=== PATIENT | male | born 1950 | race Caucasian/White ===

== ENCOUNTER 2020-03-05 08:34 | Outpatient (REF) | payer MEDICARE, SELFPAY ==
[2020-03-05 10:49] LABS: Estimated Average Glucose 100 mg/dL; Hemoglobin A1c % 5.1 %
[2020-03-05 11:02] LABS: Alanine Aminotransferase 15 U/L (0-40); Albumin Level 3.8 g/dL (3.5-5.0); Alkaline Phosphatase 91 U/L (39-117); Aspartate Amino Transferase 21 U/L (5-37); Bilirubin Total 1.9 mg/dL (0.0-1.0); Cholesterol 134 mg/dL; Glucose Fasting 143 mg/dL (60-99); HDL Cholesterol 69 mg/dL; LDL Cholesterol Calculated 38 mg/dl; Total Protein 6.5 g/dL (6.5-8.0); Triglycerides 135 mg/dL
== END 2020-03-05 08:35 | disposition home or self-care (01) ==
LOC: HO.LAB 08:34
PROVIDERS: Visit Provider Internal Medicine
DX: E11.65 Type 2 diabetes mellitus with hyperglycemia (principal); E78.2 Mixed hyperlipidemia; I10 Essential (primary) hypertension; E78.00 Pure hypercholesterolemia, unspecified
CPT/HCPCS: 80061; 80076; 82947; 83036

== ENCOUNTER 2020-06-11 10:33 | Outpatient (REF) | payer MEDICARE, SELFPAY ==
[2020-06-11 11:50] LABS: Estimated Average Glucose 97 mg/dL
[2020-06-11 12:10] LABS: Glucose Fasting 113 mg/dL (60-99)
== END 2020-06-11 10:34 | disposition home or self-care (01) ==
LOC: HO.LNP 10:33
PROVIDERS: PCP Internal Medicine; Visit Provider Internal Medicine
DX: E11.65 Type 2 diabetes mellitus with hyperglycemia (principal)
CPT/HCPCS: 82947; 83036

== ENCOUNTER 2020-06-21 18:49 | Emergency (ER) | payer MEDICARE, SELFPAY ==
[2020-06-21] VITALS (8 sets, daily range): BP systolic 145–184; BP diastolic 67–101; PULSE 73–98; RESP 12–18; TEMP 36.7; O2SAT 92–95; BMI 38.0
--- NOTE | ~2020-06-21 | XR_ITS ---
EXAMINATION: XR SHOULDER, RIGHT CLINICAL INFORMATION: Post reduction COMPARISON: Right shoulder performed earlier at 7:24 PM TECHNIQUE: AP external rotation, Grashey, scapular Y, and axillary views of the right shoulder. FINDINGS: Status post reduction there is normal glenohumeral alignment. No fracture or lytic process seen. The soft tissues are normal. There is mild periarticular spurring right AC joint. XR/XR shoulder RT min 2V IMPRESSION: Status post reduction there is normal glenohumeral alignment. There is no acute fracture or lytic process.
--- NOTE | ~2020-06-21 | XR_ITS ---
EXAMINATION: XR SHOULDER, RIGHT CLINICAL INFORMATION: Fall with shoulder pain COMPARISON: None TECHNIQUE: Two views of the right shoulder. FINDINGS: There is anteroinferior dislocation of the right shoulder. No fracture is seen on the 2 included views. XR/XR shoulder RT min 2V IMPRESSION: Anteroinferior dislocation of the right shoulder. Recommend full series of shoulder radiographs after reduction.
--- NOTE | 2020-06-21 19:09 | ED_ITS ---
HPI - Extremity Problem General Chief complaint: Extremity Injury, Upper Stated complaint: FALL ETOH Time Seen by Provider: 06/21/20 19:02 Source: patient and EMS Mode of arrival: EMS Limitations: no limitations History of Present Illness HPI Narrative: Patient comes to the emergency room complaining of right shoulder pain. Today patient was celebrating his 70th birthday, had a few drinks, went to the restroom, states he lost his footing, fell on his right shoulder. Patient states that he has been awake the whole time, no loss of consciousness, no blood thinners, did not hit his head and has no neck pain. Prior to the incident, patient denies dizziness, no chest pain or shortness of breath. EMS gave him 100 mcg of fentanyl before arriving to the hospital. Patient states that he was not able to get up because his arm was hurting and continues to support himself, denies hip pain. At this time, other than the right shoulder pain, patient has no other symptoms. MD Complaint: extremity pain Related Data Allergies Allergy/AdvReac Type Severity Reaction Status Date / Time No Known Allergies Allergy Verified 06/21/20 19:08 Review of Systems Review of Systems: Constitutional : No Weight loss, No Fever, No Chills, No Night Sweats, No Fatigue, No Malaise ENT/Mouth : No Hearing loss, No Ear Pain, No Nasal Congestion, No Sinus Pain, No Hoarseness, No sore throat, No Rhinorrhea, No Swallowing Difficulty Eyes: No Eye Pain, No Swelling, No Redness, No Foreign Body, No Discharge, No Vision Changes Cardiovascular : No Chest Pain, No SOB, No Dyspnea on Exertion, No Orthopnea, No Edema, No Palpitations Respiratory : No Cough, No Sputum, No Wheezing, No Smoke Exposure, No Dyspnea Gastrointestinal : No Nausea, No Vomiting, No Diarrhea, No Constipation, No abdominal Pain, No Hematochezia, No Melena Genitourinary : no irregular bleeding, No Dysuria, No Urinary Frequency, No Hematuria, No Urinary Incontinence, No Urgency, No Flank Pain, No Urinary Flow Changes, No Hesitancy Musculoskeletal : Right shoulder pain, No Myalgias, No Joint Swelling Skin : No Skin Lesions, No rash Neuro : No Weakness, No Numbness, No Paresthesias, No Loss of Consciousness, No Dizziness, No Headache Psych : No Anxiety/Panic, No Depression, No SI/HI/AH/VH, No Social Issues, Heme/Lymph: No Bruising, No Bleeding,No Lymphadenopathy Endocrine : No Polyuria, No Polydipsia, No Temperature Intolerance [facility] Past Medical History Medical History (Updated 06/21/20 @ 23:22 by Angelica Dhillon MD) Diabetes Hypertension Social History Social History Alcohol intake: current Alcohol intake frequency: holidays/special occasions only Use of substances other than those prescribed or required for medical reasons: No Advance Directives: No Advance Directives Information Provided: Yes Physical Exam Vital Signs: Vital Signs: Last Vital Signs Temp 98.0 F 06/21/20 21:48 Pulse 95 06/21/20 22:59 Resp 18 06/21/20 22:59 BP 171/81 H 06/21/20 22:59 Pulse Ox 95 06/21/20 22:25 Body Mass Index 38.0 Appearance: Alert. Oriented X3. No acute distress. Alert and oriented x3, clinically within normal limits, no suspicion of ETOH intoxication Eyes: Pupils equal, round and reactive to light. ENT: Pharynx normal. Neck: Normal inspection. Neck supple. No lymph nodes noted. No crepitus, no C- spine tenderness. C-collar removed CVS: Normal heart rate and rhythm. Pulses normal. Normal S1 and S2 Respiratory: No respiratory distress. Breath sounds normal. No Wheezing. No rales Abdomen: Soft and nontender. No rigidity. No distention. good BS x4 Skin: Skin warm and dry. Normal skin color. Normal skin turgor. Extremities: No lower extremity edema. No pain in lower extremities, normal range of motion. Patient is unable to abduct the right arm due to pain in the right shoulder. Pain to palpation over frontal and lateral aspect. Deformity present, no ecchymosis Neuro: Oriented X 3. No motor deficit. No sensory deficit. Moving all extermities. No slurred speech. Course Course Course Narrative: I discussed with the patient that his shoulder is dislocated. We do not have any current labs for the patient. Basic labs and EKG pending. Patient was informed of the risks versus benefits of conscious sedation , he accepted conscious sedation to have his shoulder reduced. Patient tolerated well the conscious sedation and the reduction which was uneventful. 20 mg of etomidate use. Patient recovered quickly and he states that he is feeling very well and has no pain. Patient instructed to follow-up with Dr. San. Patient provided with a sling for his shoulder Procedures Procedural Sedation Indication: fracture/dislocation reduction ASA Class: II Preparation: property assessment monitor applied, pulse oximeter, capnometry used, supplemental O2 applied, suction/airway equipment at bedside and IV secured IV Etomidate dose (mg): 20 Patient Tolerated Procedure: well and no complications MDM - Extremity (Nontraumatic) Lab Data Result diagrams: 06/21/20 20:27 06/21/20 20:27 Labs: Lab Results 06/21/20 06/21/20 Range/Units 20:27 20:27 WBC 6.6 (4.8-10.8) X10*3/uL RBC 3.18 L (4.60-5.80) X10*6/uL Hgb 13.8 L (14.0-18.0) g/dl Hct 38.7 L (42-52) % MCV 121.7 H (80-98) fL MCH 43.4 H (27.0-33.0) pg MCHC 35.7 (31.0-36.0) g/dl RDW 13.7 (11.0-16.0) % Plt Count 192 (160-400) X10*3/uL MPV 10.5 (9.4-12.4) fL Immature Gran % (Auto) 0.9 H (0.0-0.4) % Neut % (Auto) 76.4 H (45-73) % Lymph % (Auto) 15.1 L (20-40) % [place] % (Auto) 4.1 (2-11) % Eos % (Auto) 3.2 (0-4) % Baso % (Auto) 0.3 (0-2) % Lymph # (Auto) 1.0 L (1.2-4.9) X10*3/uL [place] # (Auto) 0.3 (0.1-1.2) X10*3/uL Eos # (Auto) 0.2 (0.0-0.4) X10*3/uL Baso # (Auto) 0.0 (0.0-0.2) X10*3/uL Abs Immat Gran (auto) 0.06 H (0.00-0.03) X10*3/uL Absolute Neuts (auto) 5.1 (2.0-8.3) X10*3/uL Absolute Nucleated RBC 0.000 (0.0-0.012) X10*3/uL Nucleated RBC % (auto) 0.0 (0.0-0.2) /100WBC Sodium 137 (135-145) mmol/L Potassium 3.2 L (3.3-5.1) mmol/L Chloride 99 (96-108) mmol/L Carbon Dioxide 23 (22-29) mmol/L Anion Gap 18 (12-20) BUN 10 (9-16) mg/dL Creatinine 1.33 (0.5-1.4) mg/dL Estim Creat Clear Calc 67.1 Estimated GFR 53 Random Glucose 134 H (60-115) mg/dL Calcium 8.2 L (8.4-10.2) mg/dL Imaging Data Shoulder x-ray: My impression: Dislocated right shoulder Radiologist's impression: There is anteroinferior dislocation of the right shoulder. No fracture is seen on the 2 included views. XR/XR shoulder RT min 2V IMPRESSION: Anteroinferior dislocation of the right shoulder. Recommend full series of shoulder radiographs after reduction. Post reduction right shoulder x-ray: My impression: Reduced right shoulder, no fracture Radiologist's impression: FINDINGS: Status post reduction there is normal glenohumeral alignment. No fracture or lytic process seen. The soft tissues are normal. There is mild periarticular spurring right AC joint. XR/XR shoulder RT min 2V IMPRESSION: Status post reduction there is normal glenohumeral alignment. There is no acute fracture or lytic process. Discharge Plan Discharge Clinical Impression: Dislocation of shoulder region Qualifiers: Encounter type: initial encounter Laterality: right Qualified Code(s): S43.004A - Unspecified dislocation of right shoulder joint, initial encounter Patient Disposition: Home, Self-Care Instructions: Shoulder Dislocation (ED), Shoulder Immobilizer (ED) Additional Instructions: Please call the orthopedics office to schedule an appointment. Please follow-up with your primary care physician tomorrow. If you have any worsening or new symptoms, please return to the emergency room or call 911 Referrals: Alban San MD [Physician] - 1 day
[2020-06-21] MEDS: Morphine Sulfate 4 MG/ML CARTRIDGE IVPUSH (19:18)
--- NOTE | 2020-06-21 19:42 | ECG_ITS ---
Test Reason : FALL Blood Pressure : / mmHG Vent. Rate : 077 BPM Atrial Rate : 077 BPM P-R Int : 272 ms QRS Dur : 094 ms QT Int : 438 ms P-R-T Axes : -12 078 050 degrees QTc Int : 495 ms Sinus rhythm with 1st degree A-V block Prolonged QT Abnormal ECG When compared with ECG of 30-JAN-2002 07:17, CO interval has increased QRS voltage has decreased QT has lengthened Referred By: Angelica Dhillon Electronically Signed By:NEWTON ALLEN MD
[2020-06-21 20:33] LABS: MANUAL DIFF FLAG NO
[2020-06-21] MEDS: HYDROmorphone HCl 1 MG/ML SYRINGE IVPUSH (20:33)
[2020-06-21 20:49] LABS: Basophils Percent Auto 0.3 % (0-2); Eosinophils Absolute Auto 0.2 X10*3/uL (0.0-0.4); Eosinophils Percent Auto 3.2 % (0-4); Hematocrit 38.7 % (42-52); Hemoglobin 13.8 g/dl (14.0-18.0); Imm Gran Abs Auto 0.06 X10*3/uL (0.00-0.03); Imm Gran Pct Auto 0.9 % (0.0-0.4); Lymphocytes Percent Auto 15.1 % (20-40); Mean Corpuscular HGB Conc 35.7 g/dl (31.0-36.0); Mean Corpuscular Hemoglobin 43.4 pg (27.0-33.0); Mean Platelet Volume 10.5 fL (9.4-12.4); Monocytes Absolute Auto 0.3 X10*3/uL (0.1-1.2); Monocytes Percent Auto 4.1 % (2-11); Neutrophils Absolute Auto 5.1 X10*3/uL (2.0-8.3); Neutrophils Percent Auto 76.4 % (45-73); Platelet Count 192 X10*3/uL (160-400); Red Blood Count 3.18 X10*6/uL (4.60-5.80); Red Cell Distribution Width 13.7 % (11.0-16.0); White Blood Count 6.6 X10*3/uL (4.8-10.8)
[2020-06-21 20:50] LABS: Mean Corpuscular Volume 121.7 fL (80-98)
[2020-06-21 20:58] LABS: Anion Gap 18 (12-20); Blood Urea Nitrogen 10 mg/dL (9-16); Calcium 8.2 mg/dL (8.4-10.2); Carbon Dioxide 23 mmol/L (22-29); Chloride 99 mmol/L (96-108); Creatinine Clr Calc Pharmacy 67.1; Estimated Glomerular Filt Rate 53; Glucose Random 134 mg/dL (60-115); Potassium 3.2 mmol/L (3.3-5.1); Sodium 137 mmol/L (135-145)
--- NOTE | 2020-06-21 22:12 | PC.NURSE ---
BROTHER BRIDGETTE SIGNED D/C PAPERWORK .PT BROUGHT FROM BED 10 TO BED 13 FOR CONCIOUS SEDATION.
[2020-06-21] MEDS: Etomidate 20 MG/10 ML VIAL IVPUSH (22:25)
--- NOTE | 2020-06-21 23:20 | PC.NURSE ---
pt tolerated procedure well.
--- NOTE | 2020-06-21 23:26 | PC.NURSE ---
pt passed po challenge.
--- NOTE | 2020-06-22 00:02 | PC.NURSE ---
See paper notes for intraprocedure vss.
== END 2020-06-21 23:50 | disposition home or self-care (01) ==
PROVIDERS: Emergency Provider Emergency Medicine; PCP Internal Medicine
DX: S43.004A Unspecified dislocation of right shoulder joint, initial encounter (principal); W01.198A Fall on same level from slipping, tripping and stumbling with subsequent striking against other object, initial encounter; E11.9 Type 2 diabetes mellitus without complications; I10 Essential (primary) hypertension; Y93.89 Activity, other specified; Y92.019 Unspecified place in single-family (private) house as the place of occurrence of the external cause; Y99.9 Unspecified external cause status
CPT/HCPCS: 23655; 36415; 73030; 80048; 85025; 85060; 93005; 96374; 96375; 99152; 99153; 99284; 99285; J1170; J2270

== ENCOUNTER 2020-06-28 15:17 | Outpatient (REF) | payer MEDICARE, SELFPAY ==
[2020-06-28 16:44] LABS: Folate 1.7 ng/mL (> or = 4.0); Vitamin B12 169 pg/mL (200-900)
== END 2020-06-28 15:18 | disposition home or self-care (01) ==
LOC: HO.LNP 15:17
PROVIDERS: Visit Provider Internal Medicine
DX: D75.89 Other specified diseases of blood and blood-forming organs (principal)
CPT/HCPCS: 82607; 82746

== ENCOUNTER 2020-08-27 11:03 | Outpatient (REF) | payer MEDICARE, SELFPAY ==
[2020-08-27 11:08] LABS: MANUAL DIFF FLAG NO
[2020-08-27 11:54] LABS: Basophils Absolute Auto 0.1 X10*3/uL (0.0-0.2); Basophils Percent Auto 1.1 % (0-2); Eosinophils Absolute Auto 0.4 X10*3/uL (0.0-0.4); Eosinophils Percent Auto 6.3 % (0-4); Hematocrit 46.5 % (42-52); Hemoglobin 15.8 g/dl (14.0-18.0); Imm Gran Abs Auto 0.02 X10*3/uL (0.00-0.03); Imm Gran Pct Auto 0.3 % (0.0-0.4); Lymphocytes Absolute Auto 1.9 X10*3/uL (1.2-4.9); Lymphocytes Percent Auto 30.7 % (20-40); Mean Corpuscular Hemoglobin 39.9 pg (27.0-33.0); Mean Platelet Volume 11.1 fL (9.4-12.4); Monocytes Absolute Auto 0.4 X10*3/uL (0.1-1.2); Monocytes Percent Auto 6.8 % (2-11); Neutrophils Absolute Auto 3.4 X10*3/uL (2.0-8.3); Neutrophils Percent Auto 54.8 % (45-73); Platelet Count 157 X10*3/uL (160-400); Red Blood Count 3.96 X10*6/uL (4.60-5.80); Red Cell Distribution Width 11.7 % (11.0-16.0); White Blood Count 6.2 X10*3/uL (4.8-10.8)
[2020-08-27 11:56] LABS: Mean Corpuscular Volume 117.4 fL (80-98)
[2020-08-27 12:23] LABS: Glucose Urine UA NEG (NEG); Leukocyte Esterase Urine NEG (NEG); Nitrite Urine NEG (NEG); Specific Gravity - Urine 1.025 (1.005-1.025); Urine Blood 2+ (NEG); Urine Ketones NEG (NEG); Urine Protein TRACE MG/DL (NEG-TRACE)
[2020-08-27 12:25] LABS: Appearance Urine CLEAR; Color Urine YELLOW
[2020-08-27 13:07] LABS: Squamous Epithelial Cell Urine 1+ /LPF; WBC Urine 0-2 /HPF (0-4)
[2020-08-27 13:09] LABS: Estimated Average Glucose 91 mg/dL; Hemoglobin A1C 121.9804 umol/L; Hemoglobin A1c % 4.8 %
[2020-08-27 13:26] LABS: Creatinine Urine 182.47 mg/dL; Microalbum/Creatinine Ratio Ur 32.3 ug/mg cr
[2020-08-27 13:37] LABS: Alanine Aminotransferase 19 U/L (0-40); Albumin Level 4.1 g/dL (3.5-5.0); Alkaline Phosphatase 114 U/L (39-117); Anion Gap 18 (12-20); Aspartate Amino Transferase 32 U/L (5-37); Blood Urea Nitrogen 12 mg/dL (9-16); Calcium 9.1 mg/dL (8.4-10.2); Carbon Dioxide 23 mmol/L (22-29); Chloride 105 mmol/L (96-108); Cholesterol 199 mg/dL; Estimated Glomerular Filt Rate 53; Glucose Fasting 100 mg/dL (60-99); HDL Cholesterol 84 mg/dL; LDL Cholesterol Calculated 73 mg/dl; Sodium 142 mmol/L (135-145); Total Protein 7.1 g/dL (6.5-8.0); Triglycerides 213 mg/dL
[2020-08-27 13:43] LABS: PSA,Total (Free>4and<10) 0.94 ng/mL (0.00-4.00)
== END 2020-08-27 11:04 | disposition home or self-care (01) ==
LOC: HO.LNP 11:03
PROVIDERS: Visit Provider Internal Medicine
DX: Z00.00 Encounter for general adult medical examination without abnormal findings (principal); I10 Essential (primary) hypertension; E11.65 Type 2 diabetes mellitus with hyperglycemia; E78.00 Pure hypercholesterolemia, unspecified; D75.89 Other specified diseases of blood and blood-forming organs; Z12.5 Encounter for screening for malignant neoplasm of prostate
CPT/HCPCS: 80053; 80061; 81001; 81003; 82043; 83036; 84153; 85025

== ENCOUNTER 2020-12-07 10:21 | Outpatient (REF) | payer MEDICARE, SELFPAY ==
[2020-12-07 10:23] LABS: MANUAL DIFF FLAG NO
[2020-12-07 10:49] LABS: Basophils Absolute Auto 0.1 X10*3/uL (0.0-0.2); Basophils Percent Auto 0.7 % (0-2); Eosinophils Absolute Auto 0.5 X10*3/uL (0.0-0.4); Eosinophils Percent Auto 6.8 % (0-4); Hemoglobin 15.3 g/dl (14.0-18.0); Imm Gran Abs Auto 0.03 X10*3/uL (0.00-0.03); Imm Gran Pct Auto 0.4 % (0.0-0.4); Lymphocytes Absolute Auto 1.7 X10*3/uL (1.2-4.9); Lymphocytes Percent Auto 21.7 % (20-40); Mean Corpuscular HGB Conc 33.3 g/dl (31.0-36.0); Mean Corpuscular Hemoglobin 35.3 pg (27.0-33.0); Mean Platelet Volume 11.8 fL (9.4-12.4); Monocytes Absolute Auto 0.6 X10*3/uL (0.1-1.2); Monocytes Percent Auto 7.5 % (2-11); Neutrophils Absolute Auto 4.8 X10*3/uL (2.0-8.3); Neutrophils Percent Auto 62.9 % (45-73); Platelet Count 149 X10*3/uL (160-400); Red Blood Count 4.34 X10*6/uL (4.60-5.80); Red Cell Distribution Width 12.6 % (11.0-16.0); White Blood Count 7.7 X10*3/uL (4.8-10.8)
[2020-12-07 11:58] LABS: Folate 12.8 ng/mL (> or = 4.0); Vitamin B12 570 pg/mL (200-900)
== END 2020-12-07 10:22 | disposition home or self-care (01) ==
LOC: HO.LNP 10:21
PROVIDERS: Visit Provider Internal Medicine
DX: E53.8 Deficiency of other specified B group vitamins (principal); D75.89 Other specified diseases of blood and blood-forming organs
CPT/HCPCS: 82607; 82746; 85025

== ENCOUNTER 2021-01-11 08:15 | Emergency (ER) | payer MEDICARE, SELFPAY ==
--- NOTE | ~2021-01-11 | XR_ITS ---
EXAMINATION: XR SHOULDER, LEFT CLINICAL INFORMATION: Anterior dislocation left shoulder, post reduction COMPARISON: Radiographs left shoulder 01/11/2021. TECHNIQUE: The left shoulder is imaged portably in 4 views. FINDINGS: There is realignment of glenohumeral joint. No dislocation. Oblique lateral view suggests Hill-Sachs lesion posterior medial humeral head, secondary to the dislocation. There is a fine linear density at this site which may represent a cortical avulsion from the prior injury. The acromioclavicular alignment is normal. XR/XR shoulder LT min 2V IMPRESSION: 1. Realignment glenohumeral joint. No dislocation. 2. Suspect Hill-Sachs impaction posterior humeral head with possible short linear cortical avulsion from the prior injury.
--- NOTE | ~2021-01-11 | XR_ITS ---
EXAMINATION: XR SHOULDER, LEFT CLINICAL INFORMATION: Carney like shoulder popped out COMPARISON: June 21, 2020 TECHNIQUE: Two views of the left shoulder. FINDINGS: There is anterior dislocation of the humeral head. There is bony density seen adjacent to the greater tuberosity and overlying the humeral head which may be related to calcific tendinitis however small fracture cannot be excluded. There is prominent inferior spurring about the acromioclavicular joint. XR/XR shoulder LT min 2V IMPRESSION: Anterior dislocation of the left shoulder. Probable calcific tendinitis.
[2021-01-11 08:16] VITALS: BP 184/118; PULSE 98; RESP 18; TEMP 35.5; O2SAT 97; BMI 36.8
--- NOTE | 2021-01-11 08:45 | ED_ITS ---
HPI - Extremity Problem General Chief complaint: Extremity Injury, Upper Stated complaint: lt shoulder pain Time Seen by Provider: 01/11/21 08:45 Source: patient Mode of arrival: ambulatory Limitations: no limitations History of Present Illness HPI Narrative: last night sitting in his chair tripped on a blanket and injured his left shoulder Complaint: extremity pain and joint paint Onset (ago): hour(s) Pain Consistency: constant Location: left Quality: aching Radiation: none Relieving factors: nothing Exacerbating factors: other (movement) Associated symptoms: denies other symptoms Related Data Previous Rx's Medication Instructions Recorded naproxen 500 mg tablet (Naprosyn) 500 mg PO BID #20 tab 01/11/21 Allergies Allergy/AdvReac Type Severity Reaction Status Date / Time No Known Allergies Allergy Verified 06/21/20 19:08 Review of Systems Constitutional: Constitutional: Reports no additional constitutional complaints Eyes: Eyes: Reports no additional eye complaints ENT: Denies dizziness Cardiovascular: Cardiovascular: Reports no additional cardiovascular complaints Respiratory: Respiratory: Reports as per HPI Gastrointestinal: Gastrointestinal: Reports no additional gastrointestinal complaints Musculoskeletal: Musculoskeletal: Reports no additional musculoskeletal complaints Integumentary/Breasts: Skin/Breast: Denies rash Neurologic: Reports system reviewed and no additional complaints, except as documented, Denies dizziness and Denies Sensory deficit (Neuro) Psychiatric: Psychiatric: Denies anxiety [facility] Past Medical History Medical History (Updated 01/11/21 @ 09:50 by Akhil Sheridan MD) Diabetes Hypertension Social History Social History Alcohol intake: current Alcohol intake frequency: holidays/special occasions only Advance Directives: No Advance Directives Information Provided: Yes Physical Exam Vital Signs: Vital Signs: Last Vital Signs Temp 96 F L 01/11/21 08:16 Pulse 98 01/11/21 08:16 Resp 18 01/11/21 08:16 BP 184/118 H 01/11/21 08:16 Pulse Ox 97 01/11/21 08:16 Body Mass Index 36.8 Const: Other: elderly obese male Nutritional Appearance: obese Orientation/consciousness: oriented to person and patient oriented x3 Limitations: no limitations HENMT: Head: Yes normal to inspection Ears: external ears normal General nose exam: Normal external nose present Mouth: Normal oral and palatal mucosa present and oropharynx normal Throat: Yes posterior oropharynx normal Eyes: General: appearance normal, both eyes and all related structures Neck: Other: supple Neck: Yes normal visual inspection Chest: Chest palpation & inspection: normal inspection of the chest Resp: Auscultation: clear to auscultation bilaterally Cardio: Jugular venous distension: no JVD Rate: regular rate Rhythm: regular rhythm Heart sounds: S1 normal heart sound present and S2 normal heart sound present GI: Inspection: Yes normal to inspection Palpation (GI): Soft to palpation, nontender and No hepatosplenomegaly present Auscultation: normal bowel sounds : General: Yes no CVA tenderness Back/Spine/Pelvis: Back: no CVA tenderness Skin: General skin exam: no rashes or lesions noted Neuro: General: oriented to person and patient oriented x3 Cranial nerves: Yes CN's II-XII intact bilaterally Motor exam (neuro): 5/5 motor strength present throughout Sensory Exam: No Sensory deficit (Neuro) Extrem: Other: left shoulder with humeral head anteriorly dislocated Psych: Appearance: grossly normal Course Reevaluation(s) Reevaluation #1: will xray again as there appears to have been a reduction of the shoulder Time: 09:02 Reevaluation #2: Hill sachs deformity, dislocation reduced Time: 09:51 MDM - Extremity (Nontraumatic) Imaging Data left shoulder: Radiologist's impression: dislocation shoullder post reduction: Radiologist's impression: IMPRESSION: ? 1. Realignment glenohumeral joint. No dislocation. ? 2. Suspect Hill-Sachs impaction posterior humeral head with possible short linear cortical avulsion from the prior injury. Procedures Procedure Narrative Procedure Narrative: With arm at 90 degrees and downward pressure and external rotation, shoulder appears to have reduced Discharge Plan Discharge Clinical Impression: Hill Sachs deformity Dislocation of shoulder region Qualifiers: Encounter type: initial encounter Laterality: left Qualified Code(s): S43.005A - Unspecified dislocation of left shoulder joint, initial encounter Patient Disposition: Home, Self-Care Instructions: Shoulder Dislocation (ED) Prescriptions: New naproxen [Naprosyn] 500 mg tablet 500 mg PO BID Qty: 20 RF: 0 Referrals: Chandra Chamberlain MD [Physician] - 1 week
== END 2021-01-11 10:14 | disposition home or self-care (01) ==
PROVIDERS: Emergency Provider Emergency Medicine; PCP Internal Medicine
DX: S43.005A Unspecified dislocation of left shoulder joint, initial encounter (principal); M79.602 Pain in left arm; W01.0XXA Fall on same level from slipping, tripping and stumbling without subsequent striking against object, initial encounter; Y93.9 Activity, unspecified; Y92.9 Unspecified place or not applicable; Y99.9 Unspecified external cause status; Z79.899 Other long term (current) drug therapy
CPT/HCPCS: 23575; 23650; 23675; 73030; 99284

== ENCOUNTER → 2021-02-22 08:20 | Outpatient (BNVA) | payer MEDICARE, SELFPAY | PROVIDERS: PCP Internal Medicine; Visit Provider Physician Assistant | DX: S44.30XA Injury of axillary nerve, unspecified arm, initial encounter (principal) | CPT/HCPCS: 99202 ==

== ENCOUNTER 2021-03-22 13:32 | Inpatient (IN) | payer MEDICARE, SELFPAY ==
[2021-03-22] VITALS (7 sets, daily range): BP systolic 121–140; BP diastolic 65–106; PULSE 83–140; RESP 17–28; TEMP 36.6; O2SAT 96–100; BMI 36.8
--- NOTE | ~2021-03-22 | CT_ITS ---
EXAMINATION: CT CHEST, ABDOMEN AND PELVIS WITHOUT IV CONTRAST CLINICAL INFORMATION: Anorexia, dyspnea, weakness, fatigue COMPARISON: No pertinent prior studies are available for comparison. TECHNIQUE: Multidetector volumetric imaging was performed from the thoracic inlet through the pubic symphysis following the uneventful administration of: Oral contrast: No Intravenous contrast: None. Sagittal and coronal reformatted images were obtained on the technologist workstation. This CT examination was performed using dose optimization techniques as appropriate, variously including the following: *Automated exposure control *Adjustment of mA and/or kV according to patient size (this includes techniques or standardized protocols for targeted exams where dose is matched to indication/reason for exam; i.e. extremities or head) *Use of iterative reconstruction technique Total exam dose-length product 862 mGy-cm FINDINGS: CHEST: LUNG: There are patchy areas of irregular consolidation, groundglass opacity, and reticulation predominantly involving the left greater than right lower lobes and lingula. No dense lobar consolidation. MEDIASTINUM: No hilar or mediastinal lymphadenopathy. Coronary artery calcification. Normal caliber thoracic aorta. The main pulmonary artery is dilated to 3.1 cm suggesting pulmonary arterial hypertension. Borderline cardiomegaly. No pericardial effusion. PLEURA: No significant effusion. No pleural mass or thickening. CHEST WALL/AXILLA: Bilateral gynecomastia. No axillary lymphadenopathy. There is abnormal cortical thickening of the left posterior fourth rib. No acute rib fracture. Degenerative changes of the spine and shoulders. ABDOMEN/PELVIS: The lack of intravenous contrast limits evaluation of the solid visceral organs including the liver, spleen, pancreas, and kidneys. LIVER, GALLBLADDER, AND BILIARY TREE: Liver has a nodular contour suggesting cirrhosis. Lack of IV contrast limits evaluation for focal lesions but none are seen. No intrahepatic biliary ductal dilatation. The gallbladder is unremarkable with no evidence of radiopaque gallstones, gallbladder wall thickening, or obvious pericholecystic inflammatory changes. PANCREAS: Limited non-contrast evaluation is normal. No olga-pancreatic fluid. SPLEEN: Limited non-contrast evaluation is normal. ADRENAL GLANDS: Normal; no adrenal mass. KIDNEYS AND URETERS: Limited non-contrast evaluation is normal. No hydronephrosis, hydroureter, or calculi seen. No perinephric stranding. GASTROINTESTINAL TRACT: Stomach and small bowel are nondilated. Colonic diverticulosis without evidence of colitis or diverticulitis. Normal appendix. ABDOMINAL WALL: No hernia seen. LYMPH NODES: No pathologically enlarged lymph nodes in the abdomen or pelvis. 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 3.2 cm infrarenal abdominal aortic aneurysm. BLADDER: Unremarkable. PELVIC VISCERA: Normal noncontrast appearance of the prostate and seminal vesicles. OSSEOUS STRUCTURES: Severe multilevel degenerative changes of the lumbar spine. Vacuum disc phenomenon at L3-L4, L4-L5, and L5-S1. Rudimentary disc at the S1-S2 level. There is patchy osteopenia in the hips bilaterally. CT/CT abdomen pelvis wo con IMPRESSION: Patchy areas of irregular consolidation, groundglass opacity, and septal thickening are seen. The appearance is nonspecific and could represent an infectious or inflammatory process including viral COVID pneumonitis. Abnormal appearance of the left posterior third rib. This could reflect sequelae of prior fracture. Paget's disease could give this appearance. Metastatic disease could be considered if the patient has a history of known primary malignancy. Recommend clinical correlation. Limited noncontrast evaluation of the abdomen and pelvis. Nodular hepatic contour may reflect underlying cirrhosis. 3.2 cm infrarenal abdominal aortic aneurysm. Based on published guidelines in J Am Saira Radiol 2013; 10(10):789-794 and J Vasc Surg. 2018; 67:2-77, the recommendation for an abdominal aortic aneurysm with diameter 3.0-3.4 cm is follow-up every 3 years. Dilated main pulmonary artery could reflect underlying pulmonary arterial hypertension.
--- NOTE | ~2021-03-22 | NM_ITS ---
EXAMINATION: NM LUNG IMAGE PERFUSION CLINICAL INFORMATION: Tachycardia COMPARISON: CT earlier the same day TECHNIQUE: Multiplanar scintigraphic images were obtained after administration of 4.0 mCi technetium 99m MAA macro abdomen dated albumin. FINDINGS: There is patchy heterogeneous (nonsegmental) perfusion at the left lung base corresponding to the multifocal airspace opacities on the earlier CT scan. There is a small peripheral subsegmental defect in the lateral aspect of the right midlung. NM/NM pul perfusion IMPRESSION: Nonsegmental perfusion defects at the left lung base. Small subsegmental defect in the lateral aspect of the right midlung. These findings would be considered very low probability of pulmonary embolism by perfusion only modified PIOPED II criteria.
--- NOTE | 2021-03-22 13:35 | ED_ITS ---
HPI - Weakness General Chief complaint: Weakness Stated complaint: GENERAL WEAKNESS Time Seen by Provider: 03/22/21 13:35 Source: patient Mode of arrival: EMS Limitations: no limitations History of Present Illness HPI Narrative: J+J no booster Complaint: generalized weakness Onset (ago): week(s) (4) Duration: progressively worsening Location: generalized Migration: none Severity: severe Relieving factors: rest Exacerbating factors: movement and exertion Context: other (states ) Associated symptoms: other (constipation, anorexia, dyspnea, fatigue, cannot wa lk, weight loss unknown amount) Related Data Home Medications Medication Instructions Recorded Confirmed atorvastatin 20 mg tablet 1 tab PO DAILY 03/22/21 03/22/21 irbesartan 300 mg tablet 1 tab PO DAILY 03/22/21 03/22/21 metoprolol succinate 50 mg 1 tab PO DAILY 03/22/21 03/22/21 tablet,extended release 24 hr sitagliptin 50 mg tablet (Januvia) 1 tab PO DAILY 03/22/21 03/22/21 Allergies Allergy/AdvReac Type Severity Reaction Status Date / Time No Known Allergies Allergy Verified 02/22/21 08:39 Review of Systems Review of Systems: Constitutional : pos Weight loss, No Fever, No Chills, pos Fatigue, pos Malaise ENT/Mouth : No sore throat, No Rhinorrhea Eyes: No Eye Pain, No Swelling, No Redness Cardiovascular : No Chest Pain, pos SOB, pos Dyspnea on Exertion, No Orthopnea, No Edema, No Palpitations Respiratory : No Cough, No Sputum, No Wheezing Gastrointestinal : No Nausea, No Vomiting, No Diarrhea, pos Constipation, No abdominal Pain, No Hematochezia, No Melena Genitourinary : No Dysuria, No Urinary Frequency, No Hematuria, Musculoskeletal : No joint pain, No Myalgias, No Joint Swelling Skin : No Skin Lesions, No rash Neuro : pos Weakness, No Numbness, No Dizziness, No Headache, pos falls Psych : No Anxiety/Panic, No Depression Heme/Lymph: No Bruising, No Bleeding,No Lymphadenopathy Endocrine : No Polyuria, No Polydipsia All other systems reviewed and are negative [facility] Past Medical History Attestation statement: The following information was validated with the patient. Medical History (Updated 03/22/21 @ 16:22 by Ariana Fink DO) Axillary nerve injury Diabetes Hyperlipidemia Hypertension Social History Social History Alcohol intake: former Patient Tobacco Use Status: Never used Tobacco Use of substances other than those prescribed or required for medical reasons: No Advance Directives: Yes Advance Directives Information Provided: Yes Advance Directives on File: No Current occupational status: retired Current occupation: rt handed Physical Exam Vital Signs: Vital Signs: Last Vital Signs Temp 97.8 F 03/22/21 13:40 Pulse 95 03/22/21 15:06 Resp 17 03/22/21 14:00 BP 134/65 03/22/21 15:06 Pulse Ox 96 03/22/21 15:06 BMI result Body Mass Index 36.8 Appearance: Alert. Oriented X3. No acute distress. Eyes: Pupils equal, round and reactive to light. ENT: Pharynx mild dry MM Neck: Normal inspection. Neck supple. CVS: tachycardic and irregular heart rate and rhythm. Pulses normal. Respiratory: No respiratory distress. Breath sounds normal. Abdomen: Soft and non-tender Skin: Skin warm and dry. Normal skin color. Normal skin turgor. Extremities: No lower extremity edema. Dried stool on his legs Neuro: Oriented X 3. No motor deficit. No sensory deficit. Course Course Course Narrative: BP stable after dilt EKG NSR, gentle fluids ordered lactic acidosis due to dehydration and not infection or severe sepsis 350pm patchy ground glass opacities noted - possible pneumonia infection suspected will start on ceftriaxone and azithromycin send off PCR signed out to Dr. Nash pending perfusion study MDM - Weakness MDM Narrative Medical decision making narrative: 70 yo male with HTN, DM, HLD here with 4 weeks of PALMER, fatigue, anorexia, unknown weight loss - states he cannot walk at home. Also notes he has not had BM though his exam looks like dried BM on his legs at this time labs, cultures, CTA/CT abdomen for mass, gentle fluids has no signs of LE edema or overload, IV dilt for suspected irregular tachycardia ? afib vs MAT, anticipate he will likely need admit. Lab Data Result diagrams: 03/22/21 14:08 03/22/21 14:08 Labs: Lab Results 03/22/21 03/22/21 03/22/21 Range/Units 14:08 14:08 14:08 WBC 10.7 (4.8-10.8) X10*3/uL RBC 4.47 L (4.60-5.80) X10*6/uL Hgb 14.9 (14.0-18.0) g/dl Hct 44.6 (42.0-52.0) % MCV 99.8 H (80.0-98.0) fL MCH 33.3 H (27.0-33.0) pg MCHC 33.4 (31.0-36.0) g/dl RDW 13.0 (11.0-16.0) % Plt Count 186 (160-400) X10*3/uL MPV 11.3 (9.4-12.4) fL Immature Gran % (Auto) 0.7 H (0.0-0.4) % Neut % (Auto) 88.2 H (45-73) % Lymph % (Auto) 5.7 L (20-40) % [place] % (Auto) 4.5 (2-11) % Eos % (Auto) 0.6 (0-4) % Baso % (Auto) 0.3 (0-2) % Lymph # (Auto) 0.6 L (1.2-4.9) X10*3/uL [place] # (Auto) 0.5 (0.1-1.2) X10*3/uL Eos # (Auto) 0.1 (0.0-0.4) X10*3/uL Baso # (Auto) 0.0 (0.0-0.2) X10*3/uL Abs Immat Gran (auto) 0.07 H (0.00-0.03) X10*3/uL Absolute Neuts (auto) 9.4 H (2.0-8.3) x10*3/uL Absolute Nucleated RBC 0.000 (0.0-0.012) X10*3/uL Nucleated RBC % (auto) 0.0 (0.0-0.2) /100WBC PT (9.9-13.0) SEC INR (0.9-1.1) APTT (24.1-38.0) SEC VBG pH (7.32-7.43) VBG pCO2 mmHg VBG pO2 mmHg VBG HCO3 (22-26) mmol/L VBG O2 Saturation % VBG Base Excess mmol/L Sodium 136 (135-145) mmol/L Potassium 3.3 (3.3-5.1) mmol/L Chloride 95 L (96-108) mmol/L Carbon Dioxide 27 (22-29) mmol/L Anion Gap 17 (12-20) BUN 21 H (9-16) mg/dL Creatinine 1.43 H (0.5-1.4) mg/dL Estim Creat Clear Calc 61.4 Estimated GFR 49 Random Glucose 109 (60-115) mg/dL Lactic Acid (0.5-2.0) mmol/L Calcium 9.1 (8.4-10.2) mg/dL Magnesium 2.0 (1.6-2.6) mg/dL Total Bilirubin 2.2 H (0.0-1.0) mg/dL Direct Bilirubin 1.2 H (0.0-0.5) mg/dL AST 32 (5-37) U/L ALT 30 (0-40) U/L Alkaline Phosphatase 105 (39-117) U/L Total Creatine Kinase 31 L (38-174) U/L Troponin I High Sens (<3.5-35.0) ng/L B-Natriuretic Peptide 66 (<100) pg/mL Total Protein 7.6 (6.5-8.0) g/dL Albumin 3.5 (3.5-5.0) g/dL Lipase 33 (8-78) U/L TSH (0.32-4.0) uIU/mL COVID-19 ([facility]) (Negative) COVID-19 Clin Com 03/22/21 03/22/21 03/22/21 Range/Units 14:08 14:08 14:08 WBC (4.8-10.8) X10*3/uL RBC (4.60-5.80) X10*6/uL Hgb (14.0-18.0) g/dl Hct (42.0-52.0) % MCV (80.0-98.0) fL MCH (27.0-33.0) pg MCHC (31.0-36.0) g/dl RDW (11.0-16.0) % Plt Count (160-400) X10*3/uL MPV (9.4-12.4) fL Immature Gran % (Auto) (0.0-0.4) % Neut % (Auto) (45-73) % Lymph % (Auto) (20-40) % [place] % (Auto) (2-11) % Eos % (Auto) (0-4) % Baso % (Auto) (0-2) % Lymph # (Auto) (1.2-4.9) X10*3/uL [place] # (Auto) (0.1-1.2) X10*3/uL Eos # (Auto) (0.0-0.4) X10*3/uL Baso # (Auto) (0.0-0.2) X10*3/uL Abs Immat Gran (auto) (0.00-0.03) X10*3/uL Absolute Neuts (auto) (2.0-8.3) x10*3/uL Absolute Nucleated RBC (0.0-0.012) X10*3/uL Nucleated RBC % (auto) (0.0-0.2) /100WBC PT 12.6 (9.9-13.0) SEC INR 1.1 (0.9-1.1) APTT 33.3 (24.1-38.0) SEC VBG pH (7.32-7.43) VBG pCO2 mmHg VBG pO2 mmHg VBG HCO3 (22-26) mmol/L VBG O2 Saturation % VBG Base Excess mmol/L Sodium (135-145) mmol/L Potassium (3.3-5.1) mmol/L Chloride (96-108) mmol/L Carbon Dioxide (22-29) mmol/L Anion Gap (12-20) BUN (9-16) mg/dL Creatinine (0.5-1.4) mg/dL Estim Creat Clear Calc Estimated GFR Random Glucose (60-115) mg/dL Lactic Acid 2.4 H* (0.5-2.0) mmol/L Calcium (8.4-10.2) mg/dL Magnesium (1.6-2.6) mg/dL Total Bilirubin (0.0-1.0) mg/dL Direct Bilirubin (0.0-0.5) mg/dL AST (5-37) U/L ALT (0-40) U/L Alkaline Phosphatase (39-117) U/L Total Creatine Kinase (38-174) U/L Troponin I High Sens 11.0 (<3.5-35.0) ng/L B-Natriuretic Peptide (<100) pg/mL Total Protein (6.5-8.0) g/dL Albumin (3.5-5.0) g/dL Lipase (8-78) U/L TSH (0.32-4.0) uIU/mL COVID-19 ([facility]) (Negative) COVID-19 Clin Com 03/22/21 03/22/21 03/22/21 Range/Units 14:08 14:14 14:15 WBC (4.8-10.8) X10*3/uL RBC (4.60-5.80) X10*6/uL Hgb (14.0-18.0) g/dl Hct (42.0-52.0) % MCV (80.0-98.0) fL MCH (27.0-33.0) pg MCHC (31.0-36.0) g/dl RDW (11.0-16.0) % Plt Count (160-400) X10*3/uL MPV (9.4-12.4) fL Immature Gran % (Auto) (0.0-0.4) % Neut % (Auto) (45-73) % Lymph % (Auto) (20-40) % [place] % (Auto) (2-11) % Eos % (Auto) (0-4) % Baso % (Auto) (0-2) % Lymph # (Auto) (1.2-4.9) X10*3/uL [place] # (Auto) (0.1-1.2) X10*3/uL Eos # (Auto) (0.0-0.4) X10*3/uL Baso # (Auto) (0.0-0.2) X10*3/uL Abs Immat Gran (auto) (0.00-0.03) X10*3/uL Absolute Neuts (auto) (2.0-8.3) x10*3/uL Absolute Nucleated RBC (0.0-0.012) X10*3/uL Nucleated RBC % (auto) (0.0-0.2) /100WBC PT (9.9-13.0) SEC INR (0.9-1.1) APTT (24.1-38.0) SEC VBG pH 7.41 (7.32-7.43) VBG pCO2 42 mmHg VBG pO2 34 mmHg VBG HCO3 27 H (22-26) mmol/L VBG O2 Saturation 48.0 % VBG Base Excess 2.4 mmol/L Sodium (135-145) mmol/L Potassium (3.3-5.1) mmol/L Chloride (96-108) mmol/L Carbon Dioxide (22-29) mmol/L Anion Gap (12-20) BUN (9-16) mg/dL Creatinine (0.5-1.4) mg/dL Estim Creat Clear Calc Estimated GFR Random Glucose (60-115) mg/dL Lactic Acid (0.5-2.0) mmol/L Calcium (8.4-10.2) mg/dL Magnesium (1.6-2.6) mg/dL Total Bilirubin (0.0-1.0) mg/dL Direct Bilirubin (0.0-0.5) mg/dL AST (5-37) U/L ALT (0-40) U/L Alkaline Phosphatase (39-117) U/L Total Creatine Kinase (38-174) U/L Troponin I High Sens (<3.5-35.0) ng/L B-Natriuretic Peptide (<100) pg/mL Total Protein (6.5-8.0) g/dL Albumin (3.5-5.0) g/dL Lipase (8-78) U/L TSH 2.29 (0.32-4.0) uIU/mL COVID-19 ([facility]) Negative (Negative) COVID-19 Clin Com See Note ECG Data Attestation: I personally reviewed and interpreted this ECG as follows: ECG interpretation date: 03/22/21 ECG interpretation time: 14:01 Interpretation: Rate: 125 Rhythm: irregular , PVCs occasional [place]: righwards Normal QRS complex. ST T wave : no LELIA, nonspecific qTC: normal prior studies: changed from prior artifact noted -?MAT The study has been interpreted contemporaneously by me. EKG #2 Rate: 92 Rhythm: NSR [place]: normal Normal P waves. Normal WES. Normal QRS complex. ST T wave : no LELIA, nonspecific qTC: normal prior studies: no acute ischemia, changed from prior The study has been interpreted contemporaneously by me. . Discharge Plan Discharge Clinical Impression: Acute dehydration, Pneumonia, Tachycardia Prescriptions: No Action atorvastatin 20 mg tablet 1 tab PO DAILY RF: 0 metoprolol succinate 50 mg tablet extended release 24 hr 1 tab PO DAILY RF: 0 irbesartan 300 mg tablet 1 tab PO DAILY RF: 0 Januvia 50 mg tablet 1 tab PO DAILY RF: 0
--- NOTE | 2021-03-22 13:45 | ECG_ITS ---
Test Reason : weakness Blood Pressure : / mmHG Vent. Rate : 125 BPM Atrial Rate : 125 BPM P-R Int : 000 ms QRS Dur : 090 ms QT Int : 322 ms P-R-T Axes : 000 095 012 degrees QTc Int : 464 ms Normal sinus rhythm with short bursts of PAT Low voltage QRS Abnormal ECG When compared with ECG of 21-JUN-2020 19:57, Paroxysmal atrial tachycardia bursts now present Referred By: Ariana Fink Electronically Signed By:NEWTON ALLEN MD
[2021-03-22] MEDS: dilTIAZem HCL 50 MG/10 ML VIAL 10 MG IVPUSH (14:03)
[2021-03-22] MEDS: 0.9 % Sodium Chloride 500 ML IV ×2 (14:04→15:03)
--- NOTE | 2021-03-22 14:16 | ECG_ITS ---
Test Reason : REPEAT Blood Pressure : / mmHG Vent. Rate : 092 BPM Atrial Rate : 092 BPM P-R Int : 196 ms QRS Dur : 086 ms QT Int : 386 ms P-R-T Axes : 000 080 019 degrees QTc Int : 477 ms Sinus rhythm with Premature atrial complexes Otherwise normal ECG When compared to the previous EKG of No significant changes seen Referred By: Ariana Fink Electronically Signed By:Abebe Read
[2021-03-22 14:17] LABS: MANUAL DIFF FLAG NO
[2021-03-22 14:18] LABS: Basophils Percent Auto 0.3 % (0-2); Eosinophils Absolute Auto 0.1 X10*3/uL (0.0-0.4); Eosinophils Percent Auto 0.6 % (0-4); Hematocrit 44.6 % (42.0-52.0); Hemoglobin 14.9 g/dl (14.0-18.0); Imm Gran Abs Auto 0.07 X10*3/uL (0.00-0.03); Imm Gran Pct Auto 0.7 % (0.0-0.4); Lymphocytes Absolute Auto 0.6 X10*3/uL (1.2-4.9); Lymphocytes Percent Auto 5.7 % (20-40); Mean Corpuscular HGB Conc 33.4 g/dl (31.0-36.0); Mean Corpuscular Hemoglobin 33.3 pg (27.0-33.0); Mean Corpuscular Volume 99.8 fL (80.0-98.0); Mean Platelet Volume 11.3 fL (9.4-12.4); Monocytes Absolute Auto 0.5 X10*3/uL (0.1-1.2); Monocytes Percent Auto 4.5 % (2-11); Neutrophils Absolute Auto 9.4 x10*3/uL (2.0-8.3); Neutrophils Percent Auto 88.2 % (45-73); Platelet Count 186 X10*3/uL (160-400); Red Blood Count 4.47 X10*6/uL (4.60-5.80); White Blood Count 10.7 X10*3/uL (4.8-10.8)
[2021-03-22 14:19] LABS: Venous Blood Gas Refer to POC result
[2021-03-22 14:21] LABS: VBG Base Excess 2.4 mmol/L; VBG HCO3 27 mmol/L (22-26); VBG pCO2 42 mmHg; VBG pH 7.41 (7.32-7.43); VBG pO2 34 mmHg
[2021-03-22 14:24] LABS: INTERNATIONAL NORM RATIO 1.1 (0.9-1.1); Prothrombin Time 12.6 SEC (9.9-13.0)
[2021-03-22 14:26] LABS: Partial Thromboplastin Time 33.3 SEC (24.1-38.0)
[2021-03-22 14:34] LABS: COVID-19 Test Negative (Negative); IDNOW Serial# 9DD0AD1C
[2021-03-22 14:34] LABS: Lactic Acid 2.4 mmol/L (0.5-2.0)
[2021-03-22 14:36] LABS: Alanine Aminotransferase 30 U/L (0-40); Albumin Level 3.5 g/dL (3.5-5.0); Alkaline Phosphatase 105 U/L (39-117); Anion Gap 17 (12-20); Aspartate Amino Transferase 32 U/L (5-37); Bilirubin Direct 1.2 mg/dL (0.0-0.5); Bilirubin Total 2.2 mg/dL (0.0-1.0); Blood Urea Nitrogen 21 mg/dL (9-16); Calcium 9.1 mg/dL (8.4-10.2); Carbon Dioxide 27 mmol/L (22-29); Chloride 95 mmol/L (96-108); Creatinine Clr Calc Pharmacy 61.4; Estimated Glomerular Filt Rate 49; Glucose Random 109 mg/dL (60-115); Lipase 33 U/L (8-78); Potassium 3.3 mmol/L (3.3-5.1); Sodium 136 mmol/L (135-145); Total Protein 7.6 g/dL (6.5-8.0)
--- NOTE | 2021-03-22 14:36 | PHA.MEDREC ---
Pharmacy Consult ? Medication Reconciliation Pharmacy has completed the medication reconciliation. Spoke with patient in ED. Patient knew all medications he was taking on a daily basis including doses. Pt states he has not taken his medication in approximately 1 month.
[2021-03-22 14:43] LABS: B Type Natriuretic Peptide 66 pg/mL (<100)
[2021-03-22 14:57] LABS: TSH reflex Free T4 2.29 uIU/mL (0.32-4.0)
[2021-03-22 16:14] LABS: Reflex Lactate? Lactic Acid Added
[2021-03-22] MEDS: cefTRIAXone sodium 1 GM in 0.9 % Sodium Chloride 50 ML IV (17:01)
[2021-03-22 17:25] LABS: ~Lactic Acid-LAB USE ONLY 1.6 mmol/L (0.5-2.0)
[2021-03-22 17:52] LABS: Influenza A PCR NEGATIVE (Negative); Influenza B PCR NEGATIVE (Negative); Resp Syncy Virus RNA Qual PCR NEGATIVE (Negative); SARS COV2 PCR INHOUSE POSITIVE (Negative)
[2021-03-22] MEDS: Azithromycin 500 MG in 0.9 % Sodium Chloride 250 ML 125 MG IV (17:55)
--- NOTE | 2021-03-22 21:13 | PM.IMHP ---
History of Present Illness Date of Service: 03/22/21 Chief Complaint: SOB This is a 70-year-old male with past medical history of hyperlipidemia, hypertension, diabetes who presents to the hospital with complaints of significant shortness of breath. Patient reports that his symptoms started 2 weeks ago but have worsened over the last 3-4 days. Patient has minimal cough with no significant sputum production, reports no fever, no chills, denies any chest pain, no abdominal pain nausea or vomiting, diarrhea constipation, no urinary symptoms and no lower extremity edema. He has no orthopnea PND. On arrival to the ED to the ED patient hemodynamically stable with a heart rate of 129, respiratory rate of 28, blood pressure 140/103, satting 97% on room air Labs are significant for WBC count of 10.7, BUN of 21, creatinine of 1.43 with a baseline of 1.3, 1.3, lactic acid of 2.4 the normalized, COVID-[address] shows patchy areas of irregular consolidation, ground-glass opacity, septal thickening, abnormal appearance of the left posterior 3rd rib which could be concerning for Paget's disease, sequelae of prior fracture, versus metastatic disease. Pulmonary perfusion imaging showed low probability for PE patient will be admitted for management of pneumonia Review of Systems Review of Systems: Yes all other systems are reviewed and are negative [facility] Medical History Axillary nerve injury Diabetes Hyperlipidemia Hypertension Pertinent family history: no cardiovascular disease noted family history Surgical History (Updated 03/23/21 @ 06:39 by Pretty Viramontes MD) No pertinent past surgical history Social History Alcohol intake: former Patient Tobacco Use Status: Never used Tobacco Use of substances other than those prescribed or required for medical reasons: No Advance Directives: Yes Advance Directives Information Provided: Yes Advance Directives on File: No Current occupational status: retired Current occupation: rt handed Meds Allergies Allergy/AdvReac Type Severity Reaction Status Date / Time No Known Allergies Allergy Verified 02/22/21 08:39 Active Medications: Current Medications Pharmacy Consult (Consult Rx Perform Med Rec) 1 each MISCELLANE ONCE PRN PRN Reason: Consult order Pharmacy Consult (Consult Rx Perform Med Rec) 1 each MISCELLANE ONCE PRN PRN Reason: Consult order Home Medications Medication Instructions Recorded Confirmed Last Taken Type atorvastatin 20 mg tablet 1 tab PO DAILY 03/22/21 03/22/21 02/20/21 History irbesartan 300 mg tablet 1 tab PO DAILY 03/22/21 03/22/21 02/20/21 History metoprolol succinate 50 mg 1 tab PO DAILY 03/22/21 03/22/21 02/20/21 History tablet,extended release 24 hr sitagliptin 50 mg tablet (Januvia) 1 tab PO DAILY 03/22/21 03/22/21 02/20/21 History Physical Exam Vital Signs and Narrative: Vital Signs: Last Vital Signs Temp 97.8 F 03/22/21 13:40 Pulse 89 03/22/21 20:00 Resp 19 03/22/21 20:00 BP 137/82 03/22/21 20:00 Pulse Ox 98 03/22/21 20:00 BMI result Body Mass Index 36.8 Const: General: cooperative and no acute distress Orientation/consciousness: patient oriented x3 Eyes: General: appearance normal, both eyes and all related structures Pupils: Equal, round and reactive pupils present Resp: Other: crackles bilaterally Effort & Inspection: normal respiratory effort Cardio: Rate: regular rate Rhythm: regular rhythm GI: Palpation (GI): Soft to palpation Auscultation: normal bowel sounds Skin: General skin exam: no rashes or lesions noted Neuro: General: patient oriented x3 Cranial nerves: Yes Equal, round and reactive pupils present Cognition (Neuro): normal cognition Extrem: General: Yes normal to inspection and Yes no pedal edema Results Labs CBC and Chem 7: 03/22/21 14:08 03/22/21 14:08 Labs: Laboratory Results - last 24 hr 03/22/21 03/22/21 03/22/21 14:08 14:08 14:08 MCV 99.8 H MCH 33.3 H MCHC 33.4 RDW 13.0 Plt Count 186 MPV 11.3 Immature Gran % (Auto) 0.7 H Neut % (Auto) 88.2 H Lymph % (Auto) 5.7 L [place] % (Auto) 4.5 Eos % (Auto) 0.6 Baso % (Auto) 0.3 Lymph # (Auto) 0.6 L [place] # (Auto) 0.5 Eos # (Auto) 0.1 Baso # (Auto) 0.0 Abs Immat Gran (auto) 0.07 H Absolute Neuts (auto) 9.4 H Absolute Nucleated RBC 0.000 Nucleated RBC % (auto) 0.0 PT INR APTT VBG pH VBG pCO2 VBG pO2 VBG HCO3 VBG O2 Saturation VBG Base Excess Anion Gap 17 Estim Creat Clear Calc 61.4 Estimated GFR 49 Random Glucose 109 Lactic Acid Lactic Acid F/U @ 2Hr Calcium 9.1 Magnesium 2.0 Total Bilirubin 2.2 H Direct Bilirubin 1.2 H AST 32 ALT 30 Alkaline Phosphatase 105 Total Creatine Kinase 31 L Troponin I High Sens B-Natriuretic Peptide 66 Total Protein 7.6 Albumin 3.5 Lipase 33 TSH COVID-19 ([facility]) COVID-19 Clin Com Influenza Type A (PCR) Influenza Type B (PCR) RSV RNA Qual (PCR) SARS-CoV-2 RNA (RT-PCR) 03/22/21 03/22/21 03/22/21 14:08 14:08 14:08 MCV MCH MCHC RDW Plt Count MPV Immature Gran % (Auto) Neut % (Auto) Lymph % (Auto) [place] % (Auto) Eos % (Auto) Baso % (Auto) Lymph # (Auto) [place] # (Auto) Eos # (Auto) Baso # (Auto) Abs Immat Gran (auto) Absolute Neuts (auto) Absolute Nucleated RBC Nucleated RBC % (auto) PT 12.6 INR 1.1 APTT 33.3 VBG pH VBG pCO2 VBG pO2 VBG HCO3 VBG O2 Saturation VBG Base Excess Anion Gap Estim Creat Clear Calc Estimated GFR Random Glucose Lactic Acid 2.4 H* Lactic Acid F/U @ 2Hr Calcium Magnesium Total Bilirubin Direct Bilirubin AST ALT Alkaline Phosphatase Total Creatine Kinase Troponin I High Sens 11.0 B-Natriuretic Peptide Total Protein Albumin Lipase TSH COVID-19 ([facility]) COVID-19 Clin Com Influenza Type A (PCR) Influenza Type B (PCR) RSV RNA Qual (PCR) SARS-CoV-2 RNA (RT-PCR) 03/22/21 03/22/21 03/22/21 14:08 14:14 14:15 MCV MCH MCHC RDW Plt Count MPV Immature Gran % (Auto) Neut % (Auto) Lymph % (Auto) [place] % (Auto) Eos % (Auto) Baso % (Auto) Lymph # (Auto) [place] # (Auto) Eos # (Auto) Baso # (Auto) Abs Immat Gran (auto) Absolute Neuts (auto) Absolute Nucleated RBC Nucleated RBC % (auto) PT INR APTT VBG pH 7.41 VBG pCO2 42 VBG pO2 34 VBG HCO3 27 H VBG O2 Saturation 48.0 VBG Base Excess 2.4 Anion Gap Estim Creat Clear Calc Estimated GFR Random Glucose Lactic Acid Lactic Acid F/U @ 2Hr Calcium Magnesium Total Bilirubin Direct Bilirubin AST ALT Alkaline Phosphatase Total Creatine Kinase Troponin I High Sens B-Natriuretic Peptide Total Protein Albumin Lipase TSH 2.29 COVID-19 ([facility]) Negative COVID-19 Clin Com See Note Influenza Type A (PCR) Influenza Type B (PCR) RSV RNA Qual (PCR) SARS-CoV-2 RNA (RT-PCR) 03/22/21 03/22/21 17:04 17:07 MCV MCH MCHC RDW Plt Count MPV Immature Gran % (Auto) Neut % (Auto) Lymph % (Auto) [place] % (Auto) Eos % (Auto) Baso % (Auto) Lymph # (Auto) [place] # (Auto) Eos # (Auto) Baso # (Auto) Abs Immat Gran (auto) Absolute Neuts (auto) Absolute Nucleated RBC Nucleated RBC % (auto) PT INR APTT VBG pH VBG pCO2 VBG pO2 VBG HCO3 VBG O2 Saturation VBG Base Excess Anion Gap Estim Creat Clear Calc Estimated GFR Random Glucose Lactic Acid Lactic Acid F/U @ 2Hr 1.6 Calcium Magnesium Total Bilirubin Direct Bilirubin AST ALT Alkaline Phosphatase Total Creatine Kinase Troponin I High Sens B-Natriuretic Peptide Total Protein Albumin Lipase TSH COVID-19 ([facility]) COVID-19 Clin Com Influenza Type A (PCR) NEGATIVE Influenza Type B (PCR) NEGATIVE RSV RNA Qual (PCR) NEGATIVE SARS-CoV-2 RNA (RT-PCR) POSITIVE A Imaging Radiologist's Impressions: Impressions Abdomen/Pelvis CT 03/22/21 15:15 IMPRESSION: Patchy areas of irregular consolidation, groundglass opacity, and septal thickening are seen. The appearance is nonspecific and could represent an infectious or inflammatory process including viral COVID pneumonitis. Abnormal appearance of the left posterior third rib. This could reflect sequelae of prior fracture. Paget's disease could give this appearance. Metastatic disease could be considered if the patient has a history of known primary malignancy. Recommend clinical correlation. Limited noncontrast evaluation of the abdomen and pelvis. Nodular hepatic contour may reflect underlying cirrhosis. 3.2 cm infrarenal abdominal aortic aneurysm. Based on published guidelines in J Am Saira Radiol 2013; 10(10):789-794 and J Vasc Surg. 2018; 67:2-77, the recommendation for an abdominal aortic aneurysm with diameter 3.0-3.4 cm is follow-up every 3 years. Dilated main pulmonary artery could reflect underlying pulmonary arterial hypertension. Chest CT 03/22/21 15:16 IMPRESSION: Patchy areas of irregular consolidation, groundglass opacity, and septal thickening are seen. The appearance is nonspecific and could represent an infectious or inflammatory process including viral COVID pneumonitis. Abnormal appearance of the left posterior third rib. This could reflect sequelae of prior fracture. Paget's disease could give this appearance. Metastatic disease could be considered if the patient has a history of known primary malignancy. Recommend clinical correlation. Limited noncontrast evaluation of the abdomen and pelvis. Nodular hepatic contour may reflect underlying cirrhosis. 3.2 cm infrarenal abdominal aortic aneurysm. Based on published guidelines in J Am Saira Radiol 2013; 10(10):789-794 and J Vasc Surg. 2018; 67:2-77, the recommendation for an abdominal aortic aneurysm with diameter 3.0-3.4 cm is follow-up every 3 years. Dilated main pulmonary artery could reflect underlying pulmonary arterial hypertension. Pulmonary Perfusion Imaging 03/22/21 16:50 IMPRESSION: Nonsegmental perfusion defects at the left lung base. Small subsegmental defect in the lateral aspect of the right midlung. These findings would be considered very low probability of pulmonary embolism by perfusion only modified PIOPED II criteria. Assessment and Plan (1) Pneumonia: Qualifiers: Laterality: unspecified laterality Lung location: unspecified part of lung Pneumonia type: due to unspecified organism Qualified Code(s): J18.9 - Pneumonia, unspecified organism Status: Acute (2) Acute dehydration: Status: Acute (3) Tachycardia: Status: Acute 70-year-old male with past medical history of diabetes, hypertension, hyperlipidemia presents to the hospital with complaints of shortness of breath found to hve pneumonia and COVID-19 positive # pneumonia - most likely secondary to COVID-19 with possible superimposed bacterial infection - patient significantly dyspneic with no hypoxia - has tachycardia and tachypnea - will start with IV antibiotics for treatment pneumonia - follow cultures - will obtain procalcitonin as well as Legionella and strep antigens # tachycardia - came in tachycardic and tachypneic - patient is afebrile, with no leukocytosis - this is most likely secondary to dehydration as well as dyspnea and COVID-19 pneumonia - at this time I do not feel that patient is having sepsis but will start him on IV antibiotics as above # dehydration - has some evidence of FLORINDA although very mild, as well as lactic acidosis - lactic acidosis resolved with IV fluid - will continue IV maintenance # hypertension - BP elevated - continue home medication # diabetes - start low-dose sliding scale insulin, diabetic diet DVT prophylaxis: [place] Quality Stroke Does the patient have a stroke diagnosis?: No VTE Prior VTE?: No VTE Risk Level:: Medical - moderate - high VTE Device Contraindication: Treatment Not Indicated VTE Drug Contraindication: N/A - Med Ordered
[2021-03-22] MEDS: Enoxaparin Sodium 40 MG/0.4 ML SYRINGE SUBCUT (21:30)
[2021-03-23] VITALS (13 sets, daily range): BP systolic 116–155; BP diastolic 61–94; PULSE 77–110; RESP 12–21; TEMP 36.4–36.8; O2SAT 94–99
--- NOTE | 2021-03-23 06:41 | PC.NURSE ---
pt had complete bed change and back care. pt was incont and has been sleeping thur the night. no s/s of distress. pt alert and oriented x3
[2021-03-23 07:38] LABS: Glucose, Whole Blood 84 mg/dL (60-115)
[2021-03-23 09:09] LABS: MANUAL DIFF FLAG NO
[2021-03-23 09:10] LABS: Basophils Percent Auto 0.4 % (0-2); Eosinophils Absolute Auto 0.2 X10*3/uL (0.0-0.4); Eosinophils Percent Auto 2.4 % (0-4); Hematocrit 40.4 % (42.0-52.0); Hemoglobin 13.5 g/dl (14.0-18.0); Imm Gran Abs Auto 0.05 X10*3/uL (0.00-0.03); Imm Gran Pct Auto 0.7 % (0.0-0.4); Lymphocytes Absolute Auto 0.8 X10*3/uL (1.2-4.9); Mean Corpuscular HGB Conc 33.4 g/dl (31.0-36.0); Mean Corpuscular Hemoglobin 33.6 pg (27.0-33.0); Mean Corpuscular Volume 100.5 fL (80.0-98.0); Mean Platelet Volume 11.7 fL (9.4-12.4); Monocytes Absolute Auto 0.5 X10*3/uL (0.1-1.2); Monocytes Percent Auto 6.6 % (2-11); Neutrophils Absolute Auto 6.1 x10*3/uL (2.0-8.3); Neutrophils Percent Auto 79.9 % (45-73); Platelet Count 152 X10*3/uL (160-400); Red Blood Count 4.02 X10*6/uL (4.60-5.80); Red Cell Distribution Width 13.2 % (11.0-16.0); White Blood Count 7.6 X10*3/uL (4.8-10.8)
[2021-03-23] MEDS: 0.9 % Sodium Chloride Flush 3 ML SYRINGE IVFLUSH ×2 (09:35→15:58)
[2021-03-23] MEDS: Lactated Ringers 1,000 ML 80 ML IVCONT ×2 (09:35→21:31)
[2021-03-23] MEDS: Metoprolol Succinate ER 50 MG TAB.ER.24H PO (09:36)
[2021-03-23] MEDS: Atorvastatin Calcium 20 MG TABLET PO (09:36)
[2021-03-23 09:38] LABS: Anion Gap 13 (12-20); Blood Urea Nitrogen 20 mg/dL (9-16); Calcium 8.4 mg/dL (8.4-10.2); Carbon Dioxide 29 mmol/L (22-29); Chloride 98 mmol/L (96-108); Creatinine Clr Calc Pharmacy 72.6; Estimated Glomerular Filt Rate 59; Glucose Random 94 mg/dL (60-115); Potassium 3.4 mmol/L (3.3-5.1); Sodium 137 mmol/L (135-145)
[2021-03-23 09:53] LABS: Procalcitonin 0.98 ng/mL
[2021-03-23] MEDS: Valsartan 160 MG TABLET PO (09:54)
--- NOTE | 2021-03-23 10:55 | PC.NURSE ---
pt's brother jason ([phone]) called [facility] and was updated on pt status.
--- NOTE | 2021-03-23 11:30 | HO.PM.IMPN ---
Subjective Subjective Date of Service: 03/23/21 Interval History: the patient was seen and evaluated this morning Laying in bed, feels Some improvement since coming in still reporting mild dyspnea Denies any fever, chills or chest pain No reported other overnight events. Systemic review: No fever, chills reporting generalized weakness No chest pain, palpitation Dyspnea with exertion and coughing No abdominal pain, nausea or vomiting No urinary symptoms No any rash or wounds Physical Exam Vital Signs: Vital Signs: Last Vital Signs Temp 97.7 F 03/23/21 11:27 Pulse 79 03/23/21 11:27 Resp 21 H 03/23/21 11:27 BP 130/86 03/23/21 11:27 Pulse Ox 98 03/23/21 11:27 BMI result Body Mass Index 36.8 Const: Other: Constitutional : Alert, oriented, not in distress Neck : Normal inspection, Supple Cardiovascular : RRR, S1 S2, no lower extremity edema Respiratory : decreased bilateral air entry, basal fine crackles, nowheezes or rhonchi Gastrointestinal: soft, lax, Normal bowel sounds, Non tender Skin : Warm, Dry Neurological : Alert & oriented x3, No focal deficit Objective Data Active Medications Acetaminophen (Acetaminophen 325 Mg Tablet) 650 mg PO Q6H PRN PRN Reason: Pain, Mild (Pain Scale 1-3) Atorvastatin Calcium (Atorvastatin Calcium 20 Mg Tablet) 20 mg PO DAILY REPLACED BY [facility] Last Admin: 03/23/21 09:36 Dose: 20 mg Documented by: CASSI Docusate Sodium (Docusate Sodium 100 Mg Capsule) 100 mg PO DAILY PRN PRN Reason: Constipation Enoxaparin Sodium (Enoxaparin Sodium 40 Mg/0.4 Ml Syringe) 40 mg SUBCUT Q24H REPLACED BY [facility] Last Admin: 03/22/21 21:30 Dose: 40 mg Documented by: MCTA Ceftriaxone Sodium 1 gm/ (Sodium Chloride) 50 mls @ 100 mls/hr IV Q24H TOMY Azithromycin 500 mg/ Sodium (Chloride) 250 mls @ 125 mls/hr IV Q24H REPLACED BY [facility] Lactated Ringer's (Lr) 1,000 mls @ 80 mls/hr IVCONT .[id number] REPLACED BY [facility] Last Admin: 03/23/21 09:35 Dose: 80 mls/hr Documented by: MELVIOC Metoprolol Succinate (Metoprolol Succinate Er 50 Mg Tab.Er.24h) 50 mg PO DAILY REPLACED BY [facility]; Protocol Last Admin: 03/23/21 09:36 Dose: 50 mg Documented by: CASSI Ondansetron HCl (Ondansetron Hcl 4 Mg/2 Ml Vial) 4 mg IVPUSH Q8H PRN PRN Reason: Nausea and Vomiting Pharmacy Consult (Consult Rx Perform Med Rec) 1 each MISCELLANE ONCE PRN PRN Reason: Consult order Pharmacy Consult (Consult Rx Perform Med Rec) 1 each MISCELLANE ONCE PRN PRN Reason: Consult order Sodium Chloride (0.9 % Sodium Chloride Flush 3 Ml Syringe) 3 ml IVFLUSH QSHIFT REPLACED BY [facility] Last Admin: 03/23/21 09:35 Dose: 3 ml Documented by: CASSI Valsartan (Valsartan 160 Mg Tablet) 160 mg PO DAILY REPLACED BY [facility] Last Admin: 03/23/21 09:54 Dose: 160 mg Documented by: CASSI Labs CBC & Chem 7: 03/23/21 08:55 03/23/21 08:55 Labs: Laboratory Results - last 24 hr 03/22/21 03/22/21 03/22/21 14:08 14:08 14:08 MCV 99.8 H MCH 33.3 H MCHC 33.4 RDW 13.0 Plt Count 186 MPV 11.3 Immature Gran % (Auto) 0.7 H Neut % (Auto) 88.2 H Lymph % (Auto) 5.7 L [place] % (Auto) 4.5 Eos % (Auto) 0.6 Baso % (Auto) 0.3 Lymph # (Auto) 0.6 L [place] # (Auto) 0.5 Eos # (Auto) 0.1 Baso # (Auto) 0.0 Abs Immat Gran (auto) 0.07 H Absolute Neuts (auto) 9.4 H Absolute Nucleated RBC 0.000 Nucleated RBC % (auto) 0.0 PT INR APTT VBG pH VBG pCO2 VBG pO2 VBG HCO3 VBG O2 Saturation VBG Base Excess Anion Gap 17 Estim Creat Clear Calc 61.4 Estimated GFR 49 POC Glucose Random Glucose 109 Lactic Acid Lactic Acid F/U @ 2Hr Calcium 9.1 Magnesium 2.0 Total Bilirubin 2.2 H Direct Bilirubin 1.2 H AST 32 ALT 30 Alkaline Phosphatase 105 Total Creatine Kinase 31 L Troponin I High Sens B-Natriuretic Peptide 66 Total Protein 7.6 Albumin 3.5 Lipase 33 Procalcitonin TSH COVID-19 ([facility]) COVID-19 Clin Com Influenza Type A (PCR) Influenza Type B (PCR) RSV RNA Qual (PCR) SARS-CoV-2 RNA (RT-PCR) 03/22/21 03/22/21 03/22/21 14:08 14:08 14:08 MCV MCH MCHC RDW Plt Count MPV Immature Gran % (Auto) Neut % (Auto) Lymph % (Auto) [place] % (Auto) Eos % (Auto) Baso % (Auto) Lymph # (Auto) [place] # (Auto) Eos # (Auto) Baso # (Auto) Abs Immat Gran (auto) Absolute Neuts (auto) Absolute Nucleated RBC Nucleated RBC % (auto) PT 12.6 INR 1.1 APTT 33.3 VBG pH VBG pCO2 VBG pO2 VBG HCO3 VBG O2 Saturation VBG Base Excess Anion Gap Estim Creat Clear Calc Estimated GFR POC Glucose Random Glucose Lactic Acid 2.4 H* Lactic Acid F/U @ 2Hr Calcium Magnesium Total Bilirubin Direct Bilirubin AST ALT Alkaline Phosphatase Total Creatine Kinase Troponin I High Sens 11.0 B-Natriuretic Peptide Total Protein Albumin Lipase Procalcitonin TSH COVID-19 ([facility]) COVID-19 Clin Com Influenza Type A (PCR) Influenza Type B (PCR) RSV RNA Qual (PCR) SARS-CoV-2 RNA (RT-PCR) 03/22/21 03/22/21 03/22/21 14:08 14:14 14:15 MCV MCH MCHC RDW Plt Count MPV Immature Gran % (Auto) Neut % (Auto) Lymph % (Auto) [place] % (Auto) Eos % (Auto) Baso % (Auto) Lymph # (Auto) [place] # (Auto) Eos # (Auto) Baso # (Auto) Abs Immat Gran (auto) Absolute Neuts (auto) Absolute Nucleated RBC Nucleated RBC % (auto) PT INR APTT VBG pH 7.41 VBG pCO2 42 VBG pO2 34 VBG HCO3 27 H VBG O2 Saturation 48.0 VBG Base Excess 2.4 Anion Gap Estim Creat Clear Calc Estimated GFR POC Glucose Random Glucose Lactic Acid Lactic Acid F/U @ 2Hr Calcium Magnesium Total Bilirubin Direct Bilirubin AST ALT Alkaline Phosphatase Total Creatine Kinase Troponin I High Sens B-Natriuretic Peptide Total Protein Albumin Lipase Procalcitonin TSH 2.29 COVID-19 ([facility]) Negative COVID-19 Clin Com See Note Influenza Type A (PCR) Influenza Type B (PCR) RSV RNA Qual (PCR) SARS-CoV-2 RNA (RT-PCR) 03/22/21 03/22/21 03/23/21 17:04 17:07 07:26 MCV MCH MCHC RDW Plt Count MPV Immature Gran % (Auto) Neut % (Auto) Lymph % (Auto) [place] % (Auto) Eos % (Auto) Baso % (Auto) Lymph # (Auto) [place] # (Auto) Eos # (Auto) Baso # (Auto) Abs Immat Gran (auto) Absolute Neuts (auto) Absolute Nucleated RBC Nucleated RBC % (auto) PT INR APTT VBG pH VBG pCO2 VBG pO2 VBG HCO3 VBG O2 Saturation VBG Base Excess Anion Gap Estim Creat Clear Calc Estimated GFR POC Glucose 84 Random Glucose Lactic Acid Lactic Acid F/U @ 2Hr 1.6 Calcium Magnesium Total Bilirubin Direct Bilirubin AST ALT Alkaline Phosphatase Total Creatine Kinase Troponin I High Sens B-Natriuretic Peptide Total Protein Albumin Lipase Procalcitonin TSH COVID-19 ([facility]) COVID-19 Clin Com Influenza Type A (PCR) NEGATIVE Influenza Type B (PCR) NEGATIVE RSV RNA Qual (PCR) NEGATIVE SARS-CoV-2 RNA (RT-PCR) POSITIVE A 03/23/21 03/23/21 03/23/21 08:55 08:55 08:55 MCV 100.5 H MCH 33.6 H MCHC 33.4 RDW 13.2 Plt Count 152 L MPV 11.7 Immature Gran % (Auto) 0.7 H Neut % (Auto) 79.9 H Lymph % (Auto) 10.0 L [place] % (Auto) 6.6 Eos % (Auto) 2.4 Baso % (Auto) 0.4 Lymph # (Auto) 0.8 L [place] # (Auto) 0.5 Eos # (Auto) 0.2 Baso # (Auto) 0.0 Abs Immat Gran (auto) 0.05 H Absolute Neuts (auto) 6.1 Absolute Nucleated RBC 0.000 Nucleated RBC % (auto) 0.0 PT INR APTT VBG pH VBG pCO2 VBG pO2 VBG HCO3 VBG O2 Saturation VBG Base Excess Anion Gap 13 Estim Creat Clear Calc 72.6 Estimated GFR 59 POC Glucose Random Glucose 94 Lactic Acid Lactic Acid F/U @ 2Hr Calcium 8.4 D Magnesium Total Bilirubin Direct Bilirubin AST ALT Alkaline Phosphatase Total Creatine Kinase Troponin I High Sens B-Natriuretic Peptide Total Protein Albumin Lipase Procalcitonin 0.98 TSH COVID-19 ([facility]) COVID-19 Clin Com Influenza Type A (PCR) Influenza Type B (PCR) RSV RNA Qual (PCR) SARS-CoV-2 RNA (RT-PCR) Assessment and Plan (1) Pneumonia: Status: Acute (2) Post-COVID chronic fatigue: Status: Acute (3) COVID-19 virus infection: Status: Acute Assessment and Plan: 70-year-old male with past medical history of diabetes, hypertension, hyperlipidemia presents to the hospital with complaints of shortness of breath found to hve pneumonia and COVID-19 positive # Dyspnea # 2/2 Covid19 & superimposed pneumonia likely secondary to COVID-19 with possible superimposed bacterial infection significantly dyspneic with no hypoxia continue IV antibiotics for treatment pneumonia pending cultures pending Legionella and strep antigens # post COVID fatigue patient is tired and reporting no energy likely secondary to dehydration as well as dyspnea and COVID-19 pneumonia to do physical therapy evaluation # dehydration mild evidence of FLORINDA lactic acidosis resolved with IV fluid continue IV maintenance # hypertension BP elevated continue home medication # diabetes start low-dose sliding scale insulin, diabetic diet DVT prophylaxis: Lovenox Quality Stroke Does the patient have a stroke diagnosis?: No VTE Prior VTE?: No VTE Risk Level:: Medical - moderate - high VTE Device Contraindication: Treatment Not Indicated VTE Drug Contraindication: N/A - Med Ordered
--- NOTE | 2021-03-23 12:06 | MHC.CM.PN ---
Addendum entered by Marina Salas 03/23/21 12:22: PER CONVERSATION WITH BROTHER/HCP BARB [phone], HE DOES NOT HAVE A COPY OF THE HCP. HE DOES AGREE THAT HE WILL SERVE HCP AGENT IF A NEW ONE CAN BE COMPLETED Original Note: PATIENT LIVES ALONE AND IS FULLY INDEPENDENT HE WAS COVID-19 VACCINATED ON July WITH THE [employer] DOSING NO DME OR [facility] SERVICES HCP IS HIS BROTHER. PATIENT STATES THAT HIS BROTHER (IN EXPANSE CONTACT) HAS THE COPY COPY REQUESTED. PATIENT IS ALSO AWARE OF P.T. RECOMMENDATIONS FOR SHORT TERM REHAB AND [facility]. IF FACILITY IS UNABLE TO OFFER, HE DOES AGREE TO REFERRALS TO CONTRACTED FACILITIES. IMM 03/23/21 DISCUSSED AND COPY PLACED IN CHART.
[2021-03-23] MEDS: cefTRIAXone sodium 1 GM in 0.9 % Sodium Chloride 50 ML IV (18:29)
[2021-03-23] MEDS: Azithromycin 500 MG in 0.9 % Sodium Chloride 250 ML 125 MG IV (19:15)
[2021-03-23] MEDS: Enoxaparin Sodium 40 MG/0.4 ML SYRINGE SUBCUT (22:53)
[2021-03-24] VITALS (9 sets, daily range): BP systolic 130–148; BP diastolic 70–86; PULSE 69–93; RESP 16–21; TEMP 36.6–36.9; O2SAT 96–97
[2021-03-24 07:21] LABS: Hematocrit 38.2 % (42.0-52.0); Hemoglobin 12.7 g/dl (14.0-18.0); Mean Corpuscular HGB Conc 33.2 g/dl (31.0-36.0); Mean Corpuscular Hemoglobin 33.6 pg (27.0-33.0); Mean Corpuscular Volume 101.1 fL (80.0-98.0); Mean Platelet Volume 11.4 fL (9.4-12.4); Platelet Count 142 X10*3/uL (160-400); Red Blood Count 3.78 X10*6/uL (4.60-5.80); Red Cell Distribution Width 13.3 % (11.0-16.0); White Blood Count 7.8 X10*3/uL (4.8-10.8)
[2021-03-24 08:05] LABS: Anion Gap 13 (12-20); Blood Urea Nitrogen 17 mg/dL (9-16); Calcium 8.3 mg/dL (8.4-10.2); Carbon Dioxide 30 mmol/L (22-29); Chloride 100 mmol/L (96-108); Creatinine Clr Calc Pharmacy 84.5; Estimated Glomerular Filt Rate > 60; Glucose Random 94 mg/dL (60-115); Potassium 4.1 mmol/L (3.3-5.1); Sodium 139 mmol/L (135-145)
[2021-03-24] MEDS: Lactated Ringers 1,000 ML 80 ML IVCONT (08:39)
[2021-03-24] MEDS: Atorvastatin Calcium 20 MG TABLET PO (08:56)
[2021-03-24] MEDS: Metoprolol Succinate ER 50 MG TAB.ER.24H PO (08:57)
--- NOTE | 2021-03-24 10:40 | P.DS_ITS ---
DS: Providers Provider Date of Service: 03/25/21 Date of admission: 03/22/21 21:12 Primary care physician: Moisés Wilson MD DS: Diagnosis Discharge Diagnosis (1) Pneumonia: Status: Acute (2) Post-COVID chronic fatigue: Status: Acute (3) COVID-19 virus infection: Status: Acute DS: Summary Hospital Course Hospital Course: admission note HPI ? This is a 70-year-old male with past medical history of hyperlipidemia, hypertension, diabetes who presents to the hospital with complaints of significant shortness of breath.? Patient reports that his symptoms started 2 weeks ago but have worsened over the last 3-4 days.? Patient has minimal cough with no significant sputum production, reports no fever, no chills, denies any chest pain, no abdominal pain nausea or vomiting, diarrhea constipation, no urinary symptoms and no lower extremity edema.? He has no orthopnea PND. ?On arrival to the ED to the ED patient hemodynamically stable with a heart rate of 129, respiratory rate of 28, blood pressure 140/103, satting 97% on room air Labs are significant for WBC count of 10.7, BUN of 21, creatinine of 1.43 with a baseline of 1.3, 1.3, lactic acid of 2.4 the normalized, COVID-19 positive ?chest CT shows patchy areas of irregular consolidation, ground-glass opacity, septal thickening, abnormal appearance of the left posterior 3rd rib which could be concerning for Paget's disease, sequelae of prior fracture, versus metastatic disease. ? Pulmonary perfusion imaging showed low probability for PE ?patient will be admitted for management of pneumonia Hospital Course Patient was treated with IV antibiotics of azithromycin and ceftriaxone for possible superimposed pneumonia on top of COVID-19 infection. He did not require and oxygen supplement and was able to participate with physical therapist who noticed that he is dyspneic with ambulation and weak recommending short-term rehab. Blood cultures remain negative during the hospital stay. To follow-up with his PCP regarding abnormal CXR showing 3rd rib abnormality concerning for Paget disease, fractures or possible cancer. Time Spent with Patient Time attestation: Total time spent providing and/or coordinating discharge services: Physical Exam Vital Signs: Vital Signs: Last Vital Signs Temp 98.2 F 03/24/21 06:31 Pulse 93 03/24/21 08:57 Resp 16 03/24/21 08:42 BP 141/77 H 03/24/21 08:57 Pulse Ox 97 03/24/21 08:42 BMI result Body Mass Index 36.8 Const: Other: Constitutional : Alert, oriented, not in distress Neck : Normal inspection, Supple Cardiovascular : RRR, S1 S2, no lower extremity edema Respiratory : decreased bilateral air entry, No crackles, no wheezes or rhonchi Gastrointestinal: soft, lax, Normal bowel sounds, Non tender Skin : Warm, Dry Neurological : Alert & oriented x3, No focal deficit DS: Data Data Completed and Pending Labs on day of discharge: Laboratory Results - last 24 hr 03/24/21 03/24/21 07:06 07:06 WBC 7.8 RBC 3.78 L Hgb 12.7 L Hct 38.2 L MCV 101.1 H MCH 33.6 H MCHC 33.2 RDW 13.3 Plt Count 142 L MPV 11.4 Absolute Nucleated RBC 0.000 Nucleated RBC % (auto) 0.0 Sodium 139 Potassium 4.1 D Chloride 100 Carbon Dioxide 30 H Anion Gap 13 BUN 17 H Creatinine 1.04 Estim Creat Clear Calc 84.5 Estimated GFR > 60 Random Glucose 94 Calcium 8.3 L Preliminary micro results at discharge 03/22/21 14:41 Blood Culture - Preliminary Blood - Venous No growth after 24 hours. 03/22/21 14:08 Blood Culture - Preliminary Blood - Venous No growth after 24 hours. Discharge Plan Discharge Patient Disposition: [facility] Discharge Diagnosis: COVID-19 infection Pneumonia Referrals: [facility] [Outside] - 1 Week Moisés Wilson MD [Primary Care Provider] - 1 Week Discharge Medications: Continued atorvastatin 20 mg tablet 1 tab PO DAILY RF: 0 metoprolol succinate 50 mg tablet extended release 24 hr 1 tab PO DAILY RF: 0 irbesartan 300 mg tablet 1 tab PO DAILY RF: 0 Januvia 50 mg tablet 1 tab PO DAILY RF: 0 Discharge Orders: Discharge Order (Routine); Ordered 03/27/21 Ordered By: Tab Perez Diet: advance to usual diet Activity on Discharge: As tolerated Stand Alone Forms: Patient Portal Discharge page Care Plan Goals: Read below Health Concerns: Read below Plan of Treatment: Read below Assessment: You were admitted to the hospital for evaluation of difficulty breathing. Tested positive for COVID-19 infection and images were concerning for possible bacterial pneumonia. Your treated with IV antibiotics with good response over t he course of hospital stay. FLORINDA which resolved Chest x-ray shows abnormal appearance of the left posterior 3rd rib which could be concerning for Paget's disease, sequelae of prior fracture which need to be followed by your primary care. to follow-up with primary care in a week Discharge Date/Time: 03/27/21 17:09
[2021-03-24] MEDS: Valsartan 160 MG TABLET PO (11:22)
--- NOTE | 2021-03-24 11:23 | HO.PM.IMPN ---
Subjective Subjective Date of Service: 03/24/21 Interval History: the patient was seen and evaluated this morning Laying in bed, feels better today l reporting mild dyspnea Denies any fever, chills or chest pain No reported other overnight events. Systemic review: No fever, chills reporting generalized weakness No chest pain, palpitation Dyspnea with exertion and coughing No abdominal pain, nausea or vomiting No urinary symptoms No any rash or wounds Physical Exam Vital Signs: Vital Signs: Last Vital Signs Temp 98.2 F 03/24/21 06:31 Pulse 75 03/24/21 11:22 Resp 16 03/24/21 08:42 BP 143/86 H 03/24/21 11:22 Pulse Ox 97 03/24/21 08:42 BMI result Body Mass Index 36.8 Const: Other: Constitutional : Alert, oriented, not in distress Neck : Normal inspection, Supple Cardiovascular : RRR, S1 S2, no lower extremity edema Respiratory : decreased bilateral air entry, No crackles, no wheezes or rhonchi Gastrointestinal: soft, lax, Normal bowel sounds, Non tender Skin : Warm, Dry Neurological : Alert & oriented x3, No focal deficit Objective Data Active Medications Acetaminophen (Acetaminophen 325 Mg Tablet) 650 mg PO Q6H PRN PRN Reason: Pain, Mild (Pain Scale 1-3) Atorvastatin Calcium (Atorvastatin Calcium 20 Mg Tablet) 20 mg PO DAILY [facility] Last Admin: 03/24/21 08:56 Dose: 20 mg Documented by: SUDARSHAN Docusate Sodium (Docusate Sodium 100 Mg Capsule) 100 mg PO DAILY PRN PRN Reason: Constipation Enoxaparin Sodium (Enoxaparin Sodium 40 Mg/0.4 Ml Syringe) 40 mg SUBCUT Q24H [facility] Last Admin: 03/23/21 22:53 Dose: 40 mg Documented by: JALIL Ceftriaxone Sodium 1 gm/ (Sodium Chloride) 50 mls @ 100 mls/hr IV Q24H [facility] Last Infusion: 03/23/21 18:59 Dose: 0 mls/hr Documented by: JALIL Azithromycin 500 mg/ Sodium (Chloride) 250 mls @ 125 mls/hr IV Q24H [facility] Last Infusion: 03/23/21 21:15 Dose: 0 mls/hr Documented by: JALIL Lactated Ringer's (Lr) 1,000 mls @ 80 mls/hr IVCONT .[id number] [facility] Last Admin: 03/24/21 08:39 Dose: 80 mls/hr Documented by: SUDARSHAN Metoprolol Succinate (Metoprolol Succinate Er 50 Mg Tab.Er.24h) 50 mg PO DAILY [facility]; Protocol Last Admin: 03/24/21 08:57 Dose: 50 mg Documented by: SUDARSHAN Ondansetron HCl (Ondansetron Hcl 4 Mg/2 Ml Vial) 4 mg IVPUSH Q8H PRN PRN Reason: Nausea and Vomiting Pharmacy Consult (Consult Rx Perform Med Rec) 1 each MISCELLANE ONCE PRN PRN Reason: Consult order Pharmacy Consult (Consult Rx Perform Med Rec) 1 each MISCELLANE ONCE PRN PRN Reason: Consult order Sodium Chloride (0.9 % Sodium Chloride Flush 3 Ml Syringe) 3 ml IVFLUSH QSHIFT [facility] Last Admin: 03/24/21 08:33 Dose: Not Given Documented by: SUDARSHAN Non-Admin Reason: IV Running Valsartan (Valsartan 160 Mg Tablet) 160 mg PO DAILY [facility] Last Admin: 03/24/21 11:22 Dose: 160 mg Documented by: ANDREW Labs CBC & Chem 7: 03/24/21 07:06 03/24/21 07:06 Labs: Laboratory Results - last 24 hr 03/24/21 03/24/21 07:06 07:06 MCV 101.1 H MCH 33.6 H MCHC 33.2 RDW 13.3 Plt Count 142 L MPV 11.4 Absolute Nucleated RBC 0.000 Nucleated RBC % (auto) 0.0 Anion Gap 13 Estim Creat Clear Calc 84.5 Estimated GFR > 60 Random Glucose 94 Calcium 8.3 L Microbiology Microbiology Results: Microbiology 03/22/21 14:41 Blood Culture - Preliminary Blood - Venous No growth after 24 hours. 03/22/21 14:08 Blood Culture - Preliminary Blood - Venous No growth after 24 hours. Assessment and Plan (1) Physical deconditioning: Status: Acute (2) COVID-19 virus infection: Status: Acute (3) Acute dehydration: Status: Acute (4) Pneumonia: Status: Acute Assessment and Plan: 70-year-old male with past medical history of diabetes, hypertension, hyperlipidemia presents to the hospital with complaints of shortness of breath found to hve pneumonia and COVID-19 positive # Dyspnea # 2/2 Covid19 & superimposed pneumonia likely secondary to COVID-19 with possible superimposed bacterial infection significantly dyspneic with no hypoxia continue IV antibiotics for treatment pneumonia negative cultures pending Legionella and strep antigens # post COVID fatigue, physical deconditioning patient is tired and reporting no energy likely secondary to dehydration as well as dyspnea and COVID-19 pneumonia Physical therapy recommended SNF # dehydration mild evidence of FLORINDA lactic acidosis resolved with IV fluid continue IV maintenance # hypertension BP elevated continue home medication # diabetes start low-dose sliding scale insulin, diabetic diet dispo, PT recommended SNF, shoe caser working on placement DVT prophylaxis: Lovenox Quality Stroke Does the patient have a stroke diagnosis?: No VTE Prior VTE?: No VTE Risk Level:: Medical - moderate - high VTE Device Contraindication: Treatment Not Indicated VTE Drug Contraindication: N/A - Med Ordered
--- NOTE | 2021-03-24 16:36 | PC.NURSE ---
PATIENT WAS INC OF URINE ,BED BATH WAS GIVEN ,BEDDING WAS CHANGE ,PATIENT NOW RESTING COMFORTABLE IN BED .
[2021-03-24] MEDS: cefTRIAXone sodium 1 GM in 0.9 % Sodium Chloride 50 ML IV (18:46)
[2021-03-24] MEDS: Azithromycin 500 MG in 0.9 % Sodium Chloride 250 ML 125 MG IV (18:56)
[2021-03-25] VITALS (8 sets, daily range): BP systolic 131–155; BP diastolic 69–87; PULSE 64–92; RESP 12–22; TEMP 36.4–37; O2SAT 96–100
[2021-03-25] MEDS: Enoxaparin Sodium 40 MG/0.4 ML SYRINGE SUBCUT ×2 (00:12→23:07)
[2021-03-25] MEDS: 0.9 % Sodium Chloride Flush 3 ML SYRINGE IVFLUSH ×2 (00:13→23:10)
[2021-03-25 08:42] LABS: Hematocrit 38.5 % (42.0-52.0); Hemoglobin 12.9 g/dl (14.0-18.0); Mean Corpuscular HGB Conc 33.5 g/dl (31.0-36.0); Mean Corpuscular Hemoglobin 33.3 pg (27.0-33.0); Mean Corpuscular Volume 99.5 fL (80.0-98.0); Mean Platelet Volume 11.4 fL (9.4-12.4); Platelet Count 138 X10*3/uL (160-400); Red Blood Count 3.87 X10*6/uL (4.60-5.80); Red Cell Distribution Width 13.1 % (11.0-16.0); White Blood Count 7.4 X10*3/uL (4.8-10.8)
[2021-03-25] MEDS: Valsartan 160 MG TABLET PO (09:10)
[2021-03-25] MEDS: Metoprolol Succinate ER 50 MG TAB.ER.24H PO (09:11)
[2021-03-25] MEDS: Atorvastatin Calcium 20 MG TABLET PO (09:11)
--- NOTE | 2021-03-25 13:13 | P.PNIM_ITS ---
Subjective Subjective Date of Service: 03/25/21 Interval History: the patient was seen and evaluated this morning Laying in bed, feels better today Denies any fever, chills or chest pain No reported other overnight events. Systemic review: No fever, chills reporting generalized weakness No chest pain, palpitation Dyspnea with exertion and coughing No abdominal pain, nausea or vomiting No urinary symptoms No any rash or wounds Physical Exam Vital Signs: Vital Signs: Last Vital Signs Temp 98.0 F 03/25/21 09:08 Pulse 71 03/25/21 12:10 Resp 18 03/25/21 12:10 BP 132/69 03/25/21 12:10 Pulse Ox 96 03/25/21 12:10 BMI result Body Mass Index 36.8 Const: Other: Constitutional : Alert, oriented, not in distress Neck : Normal inspection, Supple Cardiovascular : RRR, S1 S2, no lower extremity edema Respiratory : decreased bilateral air entry, No crackles, no wheezes or rhonchi Gastrointestinal: soft, lax, Normal bowel sounds, Non tender Skin : Warm, Dry Neurological : Alert & oriented x3, No focal deficit Objective Data Active Medications Acetaminophen (Acetaminophen 325 Mg Tablet) 650 mg PO Q6H PRN PRN Reason: Pain, Mild (Pain Scale 1-3) Atorvastatin Calcium (Atorvastatin Calcium 20 Mg Tablet) 20 mg PO DAILY [facility] Last Admin: 03/25/21 09:11 Dose: 20 mg Documented by: ALEJANDRO Docusate Sodium (Docusate Sodium 100 Mg Capsule) 100 mg PO DAILY PRN PRN Reason: Constipation Enoxaparin Sodium (Enoxaparin Sodium 40 Mg/0.4 Ml Syringe) 40 mg SUBCUT Q24H [facility] Last Admin: 03/25/21 00:12 Dose: 40 mg Documented by: CECY Ceftriaxone Sodium 1 gm/ (Sodium Chloride) 50 mls @ 100 mls/hr IV Q24H [facility] Last Infusion: 03/24/21 19:06 Dose: 0 mls/hr Documented by: VANECL Azithromycin 500 mg/ Sodium (Chloride) 250 mls @ 125 mls/hr IV Q24H [facility] Last Infusion: 03/24/21 21:52 Dose: 0 mls/hr Documented by: NUSRAT Metoprolol Succinate (Metoprolol Succinate Er 50 Mg Tab.Er.24h) 50 mg PO DAILY [facility]; Protocol Last Admin: 03/25/21 09:11 Dose: 50 mg Documented by: ALEJANDRO Ondansetron HCl (Ondansetron Hcl 4 Mg/2 Ml Vial) 4 mg IVPUSH Q8H PRN PRN Reason: Nausea and Vomiting Pharmacy Consult (Consult Rx Perform Med Rec) 1 each MISCELLANE ONCE PRN PRN Reason: Consult order Pharmacy Consult (Consult Rx Perform Med Rec) 1 each MISCELLANE ONCE PRN PRN Reason: Consult order Sodium Chloride (0.9 % Sodium Chloride Flush 3 Ml Syringe) 3 ml IVFLUSH QSHIFT [facility] Last Admin: 03/25/21 12:55 Dose: Not Given Documented by: FERNANDEZ Non-Admin Reason: Med Not Available Valsartan (Valsartan 160 Mg Tablet) 160 mg PO DAILY [facility] Last Admin: 03/25/21 09:10 Dose: 160 mg Documented by: ALEJANDRO Labs CBC & Chem 7: 03/25/21 08:30 03/24/21 07:06 Labs: Laboratory Results - last 24 hr 03/25/21 08:30 MCV 99.5 H MCH 33.3 H MCHC 33.5 RDW 13.1 Plt Count 138 L MPV 11.4 Absolute Nucleated RBC 0.000 Nucleated RBC % (auto) 0.0 Microbiology Microbiology Results: Microbiology 03/22/21 14:41 Blood Culture - Preliminary Blood - Venous No growth after 48 hours. 03/22/21 14:08 Blood Culture - Preliminary Blood - Venous No growth after 48 hours. Assessment and Plan (1) COVID-19 virus infection: Status: Acute (2) Physical deconditioning: Status: Acute (3) Pneumonia: Status: Acute Assessment and Plan: 70-year-old male with past medical history of diabetes, hypertension, hyperlipidemia presents to the hospital with complaints of shortness of breath found to hve pneumonia and COVID-19 positive # Dyspnea # 2/2 Covid19 & superimposed pneumonia likely secondary to COVID-19 with possible superimposed bacterial infection significantly dyspneic with no hypoxia continue IV antibiotics for treatment pneumonia negative cultures pending Legionella and strep antigens # post COVID fatigue, physical deconditioning likely secondary to dehydration as well as dyspnea and COVID-19 pneumonia Physical therapy recommended SNF # dehydration mild evidence of FLORINDA lactic acidosis resolved with IV fluid continue IV maintenance # hypertension BP elevated continue home medication # diabetes low-dose sliding scale insulin, diabetic diet dispo, PT recommended SNF, case assistant working on placement DVT prophylaxis: Lovenox Quality Stroke Does the patient have a stroke diagnosis?: No VTE Prior VTE?: No VTE Risk Level:: Medical - moderate - high VTE Device Contraindication: Treatment Not Indicated VTE Drug Contraindication: N/A - Med Ordered
--- NOTE | 2021-03-25 15:49 | MHC.CM.PN ---
PT IS CLEARED FOR DC HOWEVER WILL NEED STR SEVERAL REFERRALS WERE MADE, THERE ARE NO BED OFFERS AT THIS TIME BARRIER APPEARS TO BE POSITIVE COVID STATUS
[2021-03-25] MEDS: cefTRIAXone sodium 1 GM in 0.9 % Sodium Chloride 50 ML IV (18:10)
[2021-03-25] MEDS: Azithromycin 500 MG in 0.9 % Sodium Chloride 250 ML 125 MG IV (18:41)
[2021-03-25 20:43] LABS: Glucose, Whole Blood 117 mg/dL (60-115)
[2021-03-26 03:19] VITALS: BP 135/83; PULSE 82; RESP 18; TEMP 36.8; O2SAT 97
[2021-03-26 07:21] VITALS: BP 138/73; PULSE 77; RESP 16; TEMP 36.3; O2SAT 97
[2021-03-26] MEDS: Valsartan 160 MG TABLET PO (08:12)
[2021-03-26] MEDS: Metoprolol Succinate ER 50 MG TAB.ER.24H PO (08:12)
[2021-03-26] MEDS: Atorvastatin Calcium 20 MG TABLET PO (08:12)
[2021-03-26] MEDS: 0.9 % Sodium Chloride Flush 3 ML SYRINGE IVFLUSH ×3 (08:12→23:58)
[2021-03-26 11:39] VITALS: BP 131/76; PULSE 84; RESP 16; TEMP 36; O2SAT 98
--- NOTE | 2021-03-26 12:27 | HO.PM.IMPN ---
Subjective Subjective Date of Service: 03/26/21 Interval History: the patient was seen and evaluated this morning Laying in bed, feels better today, on room air No reported other overnight events. Systemic review: No fever, chills reporting generalized weakness No chest pain, palpitation Dyspnea with exertion and coughing No abdominal pain, nausea or vomiting No urinary symptoms No any rash or wounds Physical Exam Vital Signs: Vital Signs: Last Vital Signs Temp 96.8 F 03/26/21 11:39 Pulse 84 03/26/21 11:39 Resp 16 03/26/21 11:39 BP 131/76 03/26/21 11:39 Pulse Ox 98 03/26/21 11:39 BMI result Body Mass Index 36.8 Const: Other: Constitutional : Alert, oriented, not in distress Neck : Normal inspection, Supple Cardiovascular : RRR, S1 S2, no lower extremity edema Respiratory : decreased bilateral air entry, No crackles, no wheezes or rhonchi Gastrointestinal: soft, lax, Normal bowel sounds, Non tender Skin : Warm, Dry Neurological : Alert & oriented x3, No focal deficit Objective Data Active Medications Acetaminophen (Acetaminophen 325 Mg Tablet) 650 mg PO Q6H PRN PRN Reason: Pain, Mild (Pain Scale 1-3) Atorvastatin Calcium (Atorvastatin Calcium 20 Mg Tablet) 20 mg PO DAILY [facility] Last Admin: 03/26/21 08:12 Dose: 20 mg Documented by: ERIK Docusate Sodium (Docusate Sodium 100 Mg Capsule) 100 mg PO DAILY PRN PRN Reason: Constipation Enoxaparin Sodium (Enoxaparin Sodium 40 Mg/0.4 Ml Syringe) 40 mg SUBCUT Q24H [facility] Last Admin: 03/25/21 23:07 Dose: 40 mg Documented by: MAXIMINO Ceftriaxone Sodium 1 gm/ (Sodium Chloride) 50 mls @ 100 mls/hr IV Q24H [facility] Last Infusion: 03/25/21 18:44 Dose: 0 mls/hr Documented by: COTEMA Azithromycin 500 mg/ Sodium (Chloride) 250 mls @ 125 mls/hr IV Q24H [facility] Last Infusion: 03/25/21 20:47 Dose: 0 mls/hr Documented by: MAXIMINO Metoprolol Succinate (Metoprolol Succinate Er 50 Mg Tab.Er.24h) 50 mg PO DAILY [facility]; Protocol Last Admin: 03/26/21 08:12 Dose: 50 mg Documented by: ERIK Ondansetron HCl (Ondansetron Hcl 4 Mg/2 Ml Vial) 4 mg IVPUSH Q8H PRN PRN Reason: Nausea and Vomiting Pharmacy Consult (Consult Rx Perform Med Rec) 1 each MISCELLANE ONCE PRN PRN Reason: Consult order Pharmacy Consult (Consult Rx Perform Med Rec) 1 each MISCELLANE ONCE PRN PRN Reason: Consult order Sodium Chloride (0.9 % Sodium Chloride Flush 3 Ml Syringe) 3 ml IVFLUSH QSHIFT [facility] Last Admin: 03/26/21 08:12 Dose: 3 ml Documented by: ERIK Valsartan (Valsartan 160 Mg Tablet) 160 mg PO DAILY [facility] Last Admin: 03/26/21 08:12 Dose: 160 mg Documented by: ERIK Labs CBC & Chem 7: 03/25/21 08:30 03/24/21 07:06 Labs: Laboratory Results - last 24 hr 03/25/21 20:21 POC Glucose 117 H Assessment and Plan (1) Physical deconditioning: Status: Acute (2) COVID-19 virus infection: Status: Acute (3) Pneumonia: Status: Acute Assessment and Plan: 70-year-old male with past medical history of diabetes, hypertension, hyperlipidemia presents to the hospital with complaints of shortness of breath found to hve pneumonia and COVID-19 positive # Dyspnea # 2/2 Covid19 & superimposed pneumonia likely secondary to COVID-19 with possible superimposed bacterial infection significantly dyspneic with no hypoxia continue IV antibiotics for treatment pneumonia day 5 negative cultures pending Legionella and strep antigens # post COVID fatigue, physical deconditioning likely secondary to dehydration as well as dyspnea and COVID-19 pneumonia Physical therapy recommended SNF # dehydration mild evidence of FLORINDA lactic acidosis resolved with IV fluid discontinue IVF # hypertension BP elevated continue home medication # diabetes low-dose sliding scale insulin, diabetic diet dispo, PT recommended SNF, case mgr working on placement DVT prophylaxis: Lovenox Quality Stroke Does the patient have a stroke diagnosis?: No VTE Prior VTE?: No VTE Risk Level:: Medical - moderate - high VTE Device Contraindication: Treatment Not Indicated VTE Drug Contraindication: N/A - Med Ordered
--- NOTE | 2021-03-26 13:37 | MHC.CM.PN ---
CM spoke with Patient at his Room Ext. [phone] to discuss dc planning. Patient is agreeable now to go to [facility] ([facility])(Only SNF with Covid (+) bed available) and Brother/HCP/Akhil at [phone] is also in agreement. CM awaits insurance authorization ([facility] is [facility] but there have been several SNF denials to get auth OON). CM reviewed IMM with Patient, who stated that he has the first copy of the IMM given to him and that he does not need another(CM placed original and copy on the chart). CM will follow.
--- NOTE | 2021-03-26 14:42 | PC.NURSE ---
Dr. Parisi notified of intermittent quick atrial tach. ?PACs or ?Afib. Currently in a NSR with frequent PAC and occasional PVCs. No complaints from patient. no new orders at this time. Suggested cardiology consult. Will continue to monitor
[2021-03-26 15:56] VITALS: BP 121/59; PULSE 86; RESP 18; TEMP 36.8; O2SAT 97
[2021-03-26 16:20] LABS: Glucose, Whole Blood 109 mg/dL (60-115)
[2021-03-26] MEDS: cefTRIAXone sodium 1 GM in 0.9 % Sodium Chloride 50 ML IV (17:47)
[2021-03-26] MEDS: Azithromycin 500 MG in 0.9 % Sodium Chloride 250 ML 125 MG IV (18:29)
[2021-03-26 20:00] VITALS: BP 148/86; PULSE 76; RESP 20; TEMP 37; O2SAT 98
[2021-03-26 20:13] LABS: Glucose, Whole Blood 109 mg/dL (60-115)
[2021-03-26] MEDS: Enoxaparin Sodium 40 MG/0.4 ML SYRINGE SUBCUT (21:17)
[2021-03-26 23:04] VITALS: BP 164/88; PULSE 68; RESP 20; TEMP 36.1; O2SAT 92
[2021-03-27 04:00] VITALS: BP 163/72; PULSE 71; RESP 18; TEMP 37.2; O2SAT 95
[2021-03-27 07:16] VITALS: BP 154/89; PULSE 86; RESP 19; TEMP 36.3; O2SAT 97
[2021-03-27 07:42] LABS: Glucose, Whole Blood 94 mg/dL (60-115)
[2021-03-27] MEDS: Metoprolol Succinate ER 50 MG TAB.ER.24H PO (08:28)
[2021-03-27] MEDS: Atorvastatin Calcium 20 MG TABLET PO (08:28)
[2021-03-27] MEDS: 0.9 % Sodium Chloride Flush 3 ML SYRINGE IVFLUSH (08:28)
[2021-03-27] MEDS: Valsartan 160 MG TABLET PO (08:28)
[2021-03-27 11:24] VITALS: BP 124/83; PULSE 85; RESP 18; TEMP 36.4; O2SAT 96
[2021-03-27 11:27] LABS: Glucose, Whole Blood 136 mg/dL (60-115)
--- NOTE | 2021-03-27 12:03 | MHC.CM.PN ---
Patient has been medically cleared for dc to STR/SNF today. Patient will dc to [facility] today at 4 PM, via [facility].Patient and his Brother/HCP/Akhil at [phone] are aware of and in agreement with the dc plan.IMM addressed with Patient yesterday.
--- NOTE | 2021-03-27 13:05 | P.DS_ITS ---
DS: Providers Provider Date of Service: 03/27/21 Date of admission: 03/22/21 21:12 Primary care physician: Moisés Wilson MD DS: Diagnosis Discharge Diagnosis (1) Physical deconditioning: Status: Acute (2) COVID-19 virus infection: Status: Acute (3) Pneumonia: Status: Acute DS: Summary Hospital Course Hospital Course: admission note HPI ? This is a 70-year-old male with past medical history of hyperlipidemia, hypertension, diabetes who presents to the hospital with complaints of significant shortness of breath.? Patient reports that his symptoms started 2 weeks ago but have worsened over the last 3-4 days.? Patient has minimal cough with no significant sputum production, reports no fever, no chills, denies any chest pain, no abdominal pain nausea or vomiting, diarrhea constipation, no urinary symptoms and no lower extremity edema.? He has no orthopnea PND. ?On arrival to the ED to the ED patient hemodynamically stable with a heart rate of 129, respiratory rate of 28, blood pressure 140/103, satting 97% on room air Labs are significant for WBC count of 10.7, BUN of 21, creatinine of 1.43 with a baseline of 1.3, 1.3, lactic acid of 2.4 the normalized, COVID-19 positive ?chest CT shows patchy areas of irregular consolidation, ground-glass opacity, septal thickening, abnormal appearance of the left posterior 3rd rib which could be concerning for Paget's disease, sequelae of prior fracture, versus metastatic disease. ? Pulmonary perfusion imaging showed low probability for PE ?patient will be admitted for management of pneumonia Hospital Course Patient was treated with IV antibiotics of azithromycin and ceftriaxone for possible superimposed pneumonia on top of COVID-19 infection. He did not require and oxygen supplement and was able to participate with physical therapist who noticed that he is dyspneic with ambulation and weak recommending short-term rehab. Blood cultures remain negative during the hospital stay. To follow-up with his PCP regarding abnormal CXR showing 3rd rib abnormality concerning for Paget disease, fractures or possible cancer. Time Spent with Patient Time attestation: Total time spent providing and/or coordinating discharge services: Discharge coordination time: Greater than 30 minutes Quality: Stroke Does the patient have a stroke diagnosis?: No Physical Exam Vital Signs: Vital Signs: Last Vital Signs Temp 97.6 F 03/27/21 11:24 Pulse 85 03/27/21 11:24 Resp 18 03/27/21 11:24 BP 124/83 03/27/21 11:24 Pulse Ox 96 03/27/21 11:24 BMI result Body Mass Index 36.8 DS: Data Data Completed and Pending Labs on day of discharge: Laboratory Results - last 24 hr 03/26/21 03/26/21 03/27/21 16:14 19:59 07:17 POC Glucose 109 109 94 03/27/21 11:23 POC Glucose 136 H Preliminary micro results at discharge 03/22/21 14:41 Blood Culture - Preliminary Blood - Venous No growth after 48 hours. 03/22/21 14:08 Blood Culture - Preliminary Blood - Venous No growth after 48 hours. Discharge Plan Discharge Patient Disposition: [facility] Discharge Diagnosis: COVID-19 infection Pneumonia Referrals: [facility] [Outside] - 1 Week Moisés Wilson MD [Primary Care Provider] - 1 Week Discharge Medications: Continued atorvastatin 20 mg tablet 1 tab PO DAILY RF: 0 metoprolol succinate 50 mg tablet extended release 24 hr 1 tab PO DAILY RF: 0 irbesartan 300 mg tablet 1 tab PO DAILY RF: 0 Januvia 50 mg tablet 1 tab PO DAILY RF: 0 Discharge Orders: Discharge Order (Routine); Ordered 03/27/21 Ordered By: Tab Perez Diet: advance to usual diet Activity on Discharge: As tolerated Stand Alone Forms: Patient Portal Discharge page Care Plan Goals: Read below Health Concerns: Read below Plan of Treatment: Read below Assessment: You were admitted to the hospital for evaluation of difficulty breathing. Tested positive for COVID-19 infection and images were concerning for possible bacterial pneumonia. Your treated with IV antibiotics with good response over the course of hospital stay. FLORINDA which resolved Chest x-ray shows abnormal appearance of the left posterior 3rd rib which could be concerning for Paget's disease, sequelae of prior fracture which need to be followed by your primary care. to follow-up with primary care in a week
[2021-03-28 02:16] LABS: Strep Pneumo Ag urine Not Detected (Not Detected)
[2021-03-28 23:31] LABS: Legionella Ag Urine Not Detected (Not Detected)
== END 2021-03-27 17:09 | disposition skilled nursing facility (03) | DRG 177 ==
LOC: HO.ED 19:23 → HO.EDOVER 21:16 → HO.IMC 03-25 16:48
PROVIDERS: Emergency Medicine; Student in an Organized Health Care Education/Training Program; Admitting Provider Internal Medicine; Emergency Provider Emergency Medicine Emergency Medical Services; PCP Internal Medicine; Visit Provider Internal Medicine
DX: U07.1 COVID-19 (principal); J12.82 Pneumonia due to coronavirus disease 2019; J15.9 Unspecified bacterial pneumonia; N17.9 Acute kidney failure, unspecified; E86.0 Dehydration; I10 Essential (primary) hypertension; E11.9 Type 2 diabetes mellitus without complications; Z79.899 Other long term (current) drug therapy
CPT/HCPCS: 0241U; 36415; 71250; 74176; 78580; 80048; 80076; 82550; 82803; 82947; 83605; 83690; 83735; 83880; 84145; 84443; 84484; 85025; 85027; 85610; 85730; 87040; 87449; 87635; 87899; 93005; 96361; 96365; 96367; 96375; 97110; 97116; 97162; 99285; A9540; J0456; J0696; J1650